=== PATIENT | female | born 1965 | race African-American/Black ===

== ENCOUNTER 2017-01-16 11:17 | Inpatient (IN) | payer MEDICAID ==
[~2017-01-16] VITALS: Ht 165.1 cm; Wt 92.1 kg
[~2017-01-16 11:17] MED LIST: ALBU8.5H5 INH; AMLO5TAB2 PO; ASPI-621 PO; CLON-364 PO; FLUT1DIS3 INH; FURO-92 PO; FURO-93 PO; HYDR-3144 PO; POTA20TA14 PO; WARF5TAB PO
[2017-01-16] MEDS ORDERED: ASPIRIN 81 MG TABLET CHEW ONE (11:57)
[2017-01-16] MEDS ORDERED: NITROGLYCERIN SINGLE TAB 0.4 MG SL ONE (11:57)
[2017-01-16 11:58] LABS: HEMATOCRIT 44.8 % (34.6-47.8); HEMOGLOBIN 14.5 g/dL (11.7-16.4); WHITE BLOOD COUNT 9.3 x10^3/uL (3.4-10)
[2017-01-16] MEDS ORDERED: SODIUM CHLORIDE FLUSH 10ML SYR IVF ONE (12:00)
[2017-01-16] MEDS ORDERED: ASPIRIN 81 MG TABLET CHEW PO ONE (12:00)
[2017-01-16 12:06] LABS: BLOOD UREA NITROGEN 16 mg/dL (7-18)
[2017-01-16] MEDS: NITROGLYCERIN SINGLE TAB 0.4 MG SL PRN ×3 (12:06→12:30)
[2017-01-16 12:12] LABS: ASPARTATE AMINO TRANSFERASE 68 U/L (15-37)
[2017-01-16] MEDS ORDERED: MAALOX/HYOSCYAMINE/LIDOCAINE 45 ML BTL ONE (12:35)
[2017-01-16] MEDS ORDERED: MAALOX/HYOSCYAMINE/LIDOCAINE 45 ML BTL PO ONE (13:00)
[2017-01-16] MEDS ORDERED: SODIUM CHLORIDE FLUSH 10ML SYR IVF PRN (14:30)
[2017-01-16] MEDS ORDERED: ONDANSETRON 2MG/ML, 2ML IVPush PRN (18:00)
[2017-01-16] MEDS: OXYcodone IR 5MG TABLET PO PRN ×2 (18:43→23:52)
[2017-01-16 19:21] LABS: IS PT STATUS REG ER OR PRE ER? NO
[2017-01-16 20:00] VITALS: BP 131/83
[2017-01-16 23:35] LABS: IS PT STATUS REG ER OR PRE ER? NO
[2017-01-17 02:25] VITALS: BP 132/74
[2017-01-17 05:16] LABS: HEMATOCRIT 42.3 % (34.6-47.8); HEMOGLOBIN 13.8 g/dL (11.7-16.4); WHITE BLOOD COUNT 9.6 x10^3/uL (3.4-10)
[2017-01-17 05:28] LABS: BLOOD UREA NITROGEN 23 mg/dL (7-18)
[2017-01-17 05:39] LABS: ASPARTATE AMINO TRANSFERASE 24 U/L (15-37)
[2017-01-17] MEDS: OXYcodone IR 5MG TABLET PO PRN ×2 (06:02→10:38)
[2017-01-17 07:18] VITALS: BP 142/82
[2017-01-17] MEDS ORDERED: REGADENOSON 0.4 MG/5 ML SYRINGE ONE (08:44)
[2017-01-17] MEDS ORDERED: ALLOPURINOL 300 MG TABLET PO SCH (09:00)
[2017-01-17] MEDS ORDERED: AMLODIPINE 5 MG TABLET PO SCH (09:00)
[2017-01-17 15:39] VITALS: BP 128/75
== END 2017-01-17 19:00 | disposition home or self-care (01) | DRG 392 ==
LOC: ED 12:35 → EDIP 14:18 → 5SO 15:42
PROVIDERS: ADMIT Internal Medicine; ATTEND Internal Medicine
DX: R10.11 Right upper quadrant pain (principal); I11.0 Hypertensive heart disease with heart failure; I50.9 Heart failure, unspecified; J44.9 Chronic obstructive pulmonary disease, unspecified; D75.1 Secondary polycythemia; R07.89 Other chest pain; I05.9 Rheumatic mitral valve disease, unspecified; G89.29 Other chronic pain; I20.9 Angina pectoris, unspecified; M10.9 Gout, unspecified; Z79.82 Long term (current) use of aspirin; Z83.3 Family history of diabetes mellitus; Z87.891 Personal history of nicotine dependence; Z95.2 Presence of prosthetic heart valve
CPT/HCPCS: 36415; 71010; 76700; 78452; 80053; 83690; 83880; 84443; 84484; 85025; 93005; 93017; 93306; J2785; A9502; C9898

== ENCOUNTER 2017-03-27 22:25 | Inpatient (IN) | payer MEDICAID ==
[~2017-03-27] VITALS: Ht 162.6 cm; Wt 97.2 kg
[~2017-03-27 22:25] MED LIST changes: -HYDR-3144 PO; +HYDR-3245 PO
[2017-03-27] MEDS ORDERED: PIPERACILLIN/TAZO/PMX 3.375GM 50 ML IVPB ONE (23:00)
[2017-03-27] MEDS ORDERED: SODIUM CHLORIDE 0.9% 1,000ML IVBOLUS ONE (23:00)
[2017-03-27] MEDS ORDERED: VANCOMYCIN PER PHARMACY IV ONE (23:00)
[2017-03-27] MEDS ORDERED: ACETAMINOPHEN 500 MG TABLET PO ONE (23:00)
[2017-03-27] MEDS ORDERED: IBUPROFEN 200 MG TABLET ONE (23:12)
[2017-03-27 23:28] LABS: HEMOGLOBIN 13.4 g/dL (11.7-16.4); WHITE BLOOD COUNT 15.7 x10^3/uL (3.4-10)
[2017-03-27] MEDS ORDERED: VANCOMYCIN 1,400 MG in SODIUM CHLORIDE 0.9% 250 ML IV ONE (23:30)
[2017-03-27 23:37] LABS: ASPARTATE AMINO TRANSFERASE 95 U/L (15-37); BLOOD UREA NITROGEN 16 mg/dL (7-18)
[2017-03-27 23:45] LABS: DIFF TOTAL CELLS COUNTED 100 CELL DIFF
[2017-03-27 23:48] LABS: VERIFY COUNTS? YES
[2017-03-27 23:49] LABS: ANISOCYTOSIS 1+; IS PT STATUS REG ER OR PRE ER? YES
[2017-03-27] MEDS ORDERED: ONDANSETRON 2MG/ML, 2ML ONE (23:51)
[2017-03-27 23:52] LABS: POLYCHROMASIA 1+; STOMATOCYTES 1+
[2017-03-27] MEDS ORDERED: PIPERACILLIN/TAZO/PMX 3.375GM 50 ML ONE (23:52)
[2017-03-28] MEDS ORDERED: IBUPROFEN 200 MG TABLET PO ONE
[2017-03-28] MEDS ORDERED: TIOT18CA INH (00:19)
[2017-03-28] MEDS ORDERED: FURO40TA6 PO (00:22)
[2017-03-28] MEDS ORDERED: ALLO100T30 PO (00:23)
[2017-03-28] MEDS ORDERED: ONDANSETRON 2MG/ML, 2ML IVPB PRN (02:30)
[2017-03-28] MEDS ORDERED: SODIUM CHLORIDE 0.9%, 500ML IVBOLUS PRN (02:30)
[2017-03-28] MEDS ORDERED: SODIUM CHLORIDE 0.9% 1,000ML IVBOLUS ONE ×2 (02:30→06:00)
[2017-03-28] MEDS ORDERED: PHARMACY MAY ADJ FOR RENAL FX MC PRN (02:30)
[2017-03-28] MEDS: PANTOPRAZOLE 40 MG IV IV SCH (03:37)
[2017-03-28 03:44] VITALS: BP 105/68
[2017-03-28 04:00] VITALS: BP 83/20
[2017-03-28] MEDS: MORPHINE SULFATE 4 MG/ML, 1ML IV PRN ×6 (04:01→23:20)
[2017-03-28] MEDS: SODIUM CHLORIDE 0.9%, 500ML IVBOLUS PRN ×3 (04:35→06:59)
[2017-03-28 05:03] LABS: HEMATOCRIT 40.1 % (34.6-47.8); HEMOGLOBIN 13.2 g/dL (11.7-16.4); WHITE BLOOD COUNT 11.7 x10^3/uL (3.4-10)
[2017-03-28 05:19] LABS: ASPARTATE AMINO TRANSFERASE 522 U/L (15-37); BLOOD UREA NITROGEN 20 mg/dL (7-18)
[2017-03-28 05:31] LABS: DIFF TOTAL CELLS COUNTED 100 CELL DIFF
[2017-03-28 05:34] LABS: ANISOCYTOSIS 1+; POLYCHROMASIA 1+; VERIFY COUNTS? YES
[2017-03-28] MEDS: NOREPINEPHRINE 4 MG in SODIUM CHLORIDE 0.9% 246 ML IV PRN ×2 (05:47→16:12)
[2017-03-28] MEDS: PIPERACILLIN/TAZO/PMX 4.5GM 50 ML IVPB SCH ×4 (05:48→22:58)
[2017-03-28 08:26] LABS: IS PT STATUS REG ER OR PRE ER? NO
[2017-03-28] MEDS ORDERED: MAGNESIUM SULFATE PMX 2GM/50ML 50 ML IV ONE (08:30)
[2017-03-28] MEDS ORDERED: MIDAZOLAM 1 MG/ML, 2ML ONE (08:36)
[2017-03-28] MEDS ORDERED: FENTANYL PF 100 MCG/2ML ONE ×3 (08:37)
[2017-03-28] MEDS ORDERED: ETOMIDATE 20 MG/10 ML ONE (08:37)
[2017-03-28] MEDS ORDERED: SUCCINYLCHOLINE 20 MG/ML, 10ML ONE (08:42)
[2017-03-28] MEDS ORDERED: ROCURONIUM 10MG/ML,5ML ONE ×2 (08:42→10:20)
[2017-03-28] MEDS ORDERED: EPINEPHRINE 1 MG/ML, 1ML ONE ×2 (08:58)
[2017-03-28] MEDS ORDERED: CEFOTETAN PMX 2GM/50ML 50 ML ONE (09:52)
[2017-03-28] MEDS ORDERED: BUPIVACAINE/PF 0.5% INFIL ONE (10:08)
[2017-03-28] MEDS ORDERED: BUPIVACAINE/PF 0.5% ONE (10:12)
[2017-03-28] MEDS ORDERED: THROMBIN 5,000 UNIT VIAL TP ONE (10:13)
[2017-03-28] MEDS: ALBUTEROL/IPRATROPIUM 2.5MG/0.5MG, 3 ML INLINE SCH ×4 (11:00→22:29)
[2017-03-28] MEDS ORDERED: SODIUM BICARB 8.4%, 50ML SYRINGE ONE (12:26)
[2017-03-28] MEDS ORDERED: LIDOCAINE-MPF 1%, 2ML ENDO PRN (12:30)
[2017-03-28] MEDS: SODIUM CHLORIDE 0.9% 1,000 ML IV SCH ×3 (12:38→22:58)
[2017-03-28] MEDS ORDERED: VANCOMYCIN PER PHARMACY MC PRN (15:00)
[2017-03-28] MEDS ORDERED: PHARMACOKINETIC MONITORING MC PRN (15:30)
[2017-03-28 16:01] LABS: IS PT STATUS REG ER OR PRE ER? NO
[2017-03-28] MEDS: PROPOFOL 100 ML IV PRN (16:13)
[2017-03-28] MEDS ORDERED: SODIUM BICARBONATE 1 MEQ/ML, 50ML VIAL IVPush ONE (18:30)
[2017-03-28] MEDS ORDERED: NOREPINEPHRINE 8 MG in SODIUM CHLORIDE 0.9% 242 ML IV PRN (20:30)
[2017-03-28] MEDS: NOREPINEPHRINE 8 MG in SODIUM CHLORIDE 0.9% 242 ML IV PRN (20:55)
[2017-03-28] MEDS ORDERED: ALBUTEROL/IPRATROPIUM 2.5MG/0.5MG, 3 ML ONE (21:17)
[2017-03-29] MEDS: PANTOPRAZOLE 40 MG IV IV SCH (01:26)
[2017-03-29] MEDS: MORPHINE SULFATE 4 MG/ML, 1ML IV PRN ×3 (01:36→22:37)
[2017-03-29] MEDS: ALBUTEROL/IPRATROPIUM 2.5MG/0.5MG, 3 ML INLINE SCH ×6 (02:54→22:51)
[2017-03-29 04:00] VITALS: BP 106/65
[2017-03-29 04:27] LABS: HEMATOCRIT 37.6 % (34.6-47.8); HEMOGLOBIN 12.3 g/dL (11.7-16.4); WHITE BLOOD COUNT 12.3 x10^3/uL (3.4-10)
[2017-03-29] MEDS: PROPOFOL 100 ML IV PRN ×5 (04:31→22:32)
[2017-03-29 04:32] LABS: ABG COLLECTION SITE NOT DOCUMENTED
[2017-03-29 04:39] LABS: ASPARTATE AMINO TRANSFERASE 373 U/L (15-37); BLOOD UREA NITROGEN 24 mg/dL (7-18)
[2017-03-29] MEDS: PIPERACILLIN/TAZO/PMX 4.5GM 50 ML IVPB SCH ×4 (05:32→23:59)
[2017-03-29] MEDS: SODIUM CHLORIDE 0.9% 1,000 ML IV SCH ×3 (05:33→21:17)
[2017-03-29] MEDS: NOREPINEPHRINE 8 MG in SODIUM CHLORIDE 0.9% 242 ML IV PRN ×2 (09:27→21:16)
[2017-03-29] MEDS: VANCOMYCIN 1,500 MG in SODIUM CHLORIDE 0.9% 250 ML IV SCH (13:08)
[2017-03-29 14:13] LABS: IS PT STATUS REG ER OR PRE ER? NO
[2017-03-29] MEDS ORDERED: VANCOMYCIN 2,000 MG in SODIUM CHLORIDE 0.9% 500 ML IV SCH (21:00)
[2017-03-30] MEDS: PANTOPRAZOLE 40 MG IV IV SCH (01:55)
[2017-03-30] MEDS: ALBUTEROL/IPRATROPIUM 2.5MG/0.5MG, 3 ML INLINE SCH ×6 (02:57→21:57)
[2017-03-30] MEDS: PROPOFOL 100 ML IV PRN ×5 (04:04→20:54)
[2017-03-30 04:08] LABS: ABG COLLECTION SITE ARTERIAL LINE
[2017-03-30 04:15] VITALS: BP 108/63
[2017-03-30 04:18] LABS: HEMATOCRIT 35.1 % (34.6-47.8); HEMOGLOBIN 11.5 g/dL (11.7-16.4)
[2017-03-30 04:29] LABS: BLOOD UREA NITROGEN 16 mg/dL (7-18)
[2017-03-30] MEDS: PIPERACILLIN/TAZO/PMX 4.5GM 50 ML IVPB SCH ×4 (05:45→23:55)
[2017-03-30] MEDS: SODIUM CHLORIDE 0.9% 1,000 ML IV SCH ×3 (06:27→19:33)
[2017-03-30] MEDS: ENOXAPARIN 40 MG/0.4 ML SQ SCH (11:11)
[2017-03-30] MEDS: NOREPINEPHRINE 8 MG in SODIUM CHLORIDE 0.9% 242 ML IV PRN (11:11)
[2017-03-30 15:17] LABS: IS PT STATUS REG ER OR PRE ER? NO
[2017-03-30 19:07] LABS: HIT LOT CART23835/KIT23844
[2017-03-30 20:11] LABS: HIT OBC PASS
[2017-03-30 20:12] LABS: HIT RESULT NEGATIVE (NEGATIVE)
[2017-03-30] MEDS ORDERED: SODIUM CHLORIDE 0.9% 1,000ML IVBOLUS ONE (23:30)
[2017-03-30] MEDS ORDERED: ACETAMINOPHEN 325 MG TABLET PO PRN (23:30)
[2017-03-31] MEDS: PROPOFOL 100 ML IV PRN ×7 (00:01→22:09)
[2017-03-31] MEDS: VANCOMYCIN 1,500 MG in SODIUM CHLORIDE 0.9% 250 ML IV SCH (01:18)
[2017-03-31] MEDS: ALBUTEROL/IPRATROPIUM 2.5MG/0.5MG, 3 ML INLINE SCH ×6 (02:20→21:38)
[2017-03-31] MEDS: PANTOPRAZOLE 40 MG IV IV SCH (02:35)
[2017-03-31] MEDS: SODIUM CHLORIDE 0.9% 1,000 ML IV SCH ×2 (02:46→09:21)
[2017-03-31 04:00] VITALS: BP 117/69
[2017-03-31 04:23] LABS: ABG COLLECTION SITE ARTERIAL LINE
[2017-03-31 04:28] LABS: HEMATOCRIT 34.1 % (34.6-47.8); HEMOGLOBIN 11.4 g/dL (11.7-16.4); WHITE BLOOD COUNT 10.2 x10^3/uL (3.4-10)
[2017-03-31 04:39] LABS: BLOOD UREA NITROGEN 13 mg/dL (7-18)
[2017-03-31 04:44] LABS: ASPARTATE AMINO TRANSFERASE 125 U/L (15-37)
[2017-03-31 04:47] LABS: DIFF TOTAL CELLS COUNTED 100 CELL DIFF
[2017-03-31 04:53] LABS: ANISOCYTOSIS 1+; POLYCHROMASIA 1+; VERIFY COUNTS? YES
[2017-03-31] MEDS: PIPERACILLIN/TAZO/PMX 4.5GM 50 ML IVPB SCH ×3 (06:22→17:45)
[2017-03-31] MEDS: ENOXAPARIN 40 MG/0.4 ML SQ SCH (09:22)
[2017-03-31] MEDS ORDERED: FUROSEMIDE 40 MG/4 ML ONE (10:31)
[2017-03-31] MEDS: FUROSEMIDE 40 MG/4 ML IV SCH (21:01)
[2017-03-31] MEDS ORDERED: morphine SULFATE 10 MG/ML, 1ML ONE (21:08)
[2017-03-31] MEDS: MORPHINE SULFATE 4 MG/ML, 1ML IV PRN (21:11)
[2017-03-31] MEDS ORDERED: SODIUM CHLORIDE 0.9% 1,000 ML IV SCH (21:30)
[2017-03-31] MEDS ORDERED: FENTANYL PF 2,500 MCG in SODIUM CHLORIDE 0.9% 200 ML IV PRN (22:00)
[2017-04-01] MEDS: PIPERACILLIN/TAZO/PMX 4.5GM 50 ML IVPB SCH ×4 (01:04→17:48)
[2017-04-01] MEDS: PROPOFOL 100 ML IV PRN (01:54)
[2017-04-01] MEDS: PANTOPRAZOLE 40 MG IV IV SCH (02:02)
[2017-04-01] MEDS: ALBUTEROL/IPRATROPIUM 2.5MG/0.5MG, 3 ML INLINE SCH ×2 (02:06→06:50)
[2017-04-01 04:16] VITALS: BP 119/69
[2017-04-01 04:40] LABS: ABG COLLECTION SITE RIGHT RADIAL; COLLATERAL CIRCULATION TESTING NORMAL
[2017-04-01 05:16] LABS: BLOOD UREA NITROGEN 9 mg/dL (7-18)
[2017-04-01 05:42] LABS: DIFF TOTAL CELLS COUNTED 100 CELL DIFF; HEMATOCRIT 33.8 % (34.6-47.8); HEMOGLOBIN 11.3 g/dL (11.7-16.4)
[2017-04-01 05:44] LABS: VERIFY COUNTS? YES
[2017-04-01 05:45] LABS: ANISOCYTOSIS 1+; POLYCHROMASIA 1+
[2017-04-01] MEDS ORDERED: MIDAZOLAM 1 MG/ML, 5ML IVPush PRN (08:00)
[2017-04-01] MEDS: FUROSEMIDE 40 MG/4 ML IV SCH ×2 (08:29→17:48)
[2017-04-01] MEDS: SODIUM CHLORIDE FLUSH 10ML SYR IVF SCH ×2 (08:29→20:59)
[2017-04-01] MEDS: ENOXAPARIN 40 MG/0.4 ML SQ SCH (08:29)
[2017-04-01] MEDS ORDERED: MAGNESIUM SULFATE PMX 4GM/100M 100 ML IV ONE ×2 (09:00→10:00)
[2017-04-01 09:29] LABS: HEP B SURF. AB 49.5 mIU/mL (0.0-10.0)
[2017-04-01] MEDS: POTASSIUM CHLORIDE 10% 40 MEQ/30 ML UDC NG SCH ×2 (09:40→21:09)
[2017-04-01] MEDS: ALBUTEROL/IPRATROPIUM 2.5MG/0.5MG, 3 ML NPPB SCH ×3 (11:00→18:58)
[2017-04-01] MEDS: POTASSIUM CHLORIDE 20 MEQ PACKET PO SCH (15:38)
[2017-04-01] MEDS ORDERED: POTASSIUM CHLORIDE 20 MEQ PACKET PO SCH (17:00)
[2017-04-01] MEDS: MORPHINE SULFATE 4 MG/ML, 1ML IV PRN (20:58)
[2017-04-01] MEDS ORDERED: morphine SULFATE 10 MG/ML, 1ML ONE (23:58)
[2017-04-02] MEDS: MORPHINE SULFATE 4 MG/ML, 1ML IV PRN ×2 (00:01→19:43)
[2017-04-02] MEDS: PIPERACILLIN/TAZO/PMX 4.5GM 50 ML IVPB SCH ×4 (00:01→18:08)
[2017-04-02] MEDS: PANTOPRAZOLE 40 MG IV IV SCH (02:50)
[2017-04-02 04:09] VITALS: BP 108/60
[2017-04-02 04:57] LABS: ABG COLLECTION SITE LEFT RADIAL; COLLATERAL CIRCULATION TESTING NORMAL
[2017-04-02 05:07] LABS: BLOOD UREA NITROGEN 8 mg/dL (7-18)
[2017-04-02 05:10] LABS: ASPARTATE AMINO TRANSFERASE 55 U/L (15-37)
[2017-04-02 05:48] LABS: DIFF TOTAL CELLS COUNTED 100 CELL DIFF; HEMATOCRIT 30.8 % (34.6-47.8); HEMOGLOBIN 10.2 g/dL (11.7-16.4); WHITE BLOOD COUNT 8.2 x10^3/uL (3.4-10)
[2017-04-02 05:51] LABS: VERIFY COUNTS? YES
[2017-04-02 05:52] LABS: ANISOCYTOSIS 1+; LARGE PLATELETS 1+; MICROCYTOSIS 1+
[2017-04-02] MEDS: ALBUTEROL/IPRATROPIUM 2.5MG/0.5MG, 3 ML NPPB SCH ×4 (07:29→19:16)
[2017-04-02] MEDS: FUROSEMIDE 40 MG/4 ML IV SCH ×2 (08:01→18:08)
[2017-04-02] MEDS: POTASSIUM CHLORIDE 20 MEQ PACKET PO SCH (08:01)
[2017-04-02] MEDS: SODIUM CHLORIDE FLUSH 10ML SYR IVF SCH ×2 (09:32→19:43)
[2017-04-02] MEDS: ENOXAPARIN 40 MG/0.4 ML SQ SCH (09:33)
[2017-04-02] MEDS ORDERED: LORazepam 2 MG/ML, 1ML IVPush PRN (16:00)
[2017-04-02] MEDS ORDERED: morphine SULFATE 10 MG/ML, 1ML ONE (19:39)
[2017-04-03] MEDS: PIPERACILLIN/TAZO/PMX 4.5GM 50 ML IVPB SCH ×4 (00:29→18:11)
[2017-04-03] MEDS: PANTOPRAZOLE 40 MG IV IV SCH (02:42)
[2017-04-03 04:49] VITALS: BP 112/65
[2017-04-03 05:34] LABS: ABG COLLECTION SITE RIGHT BRACHIAL
[2017-04-03 05:40] LABS: HEMATOCRIT 31.2 % (34.6-47.8); HEMOGLOBIN 10.2 g/dL (11.7-16.4); WHITE BLOOD COUNT 10.5 x10^3/uL (3.4-10)
[2017-04-03 05:48] LABS: ASPARTATE AMINO TRANSFERASE 43 U/L (15-37); BLOOD UREA NITROGEN 10 mg/dL (7-18)
[2017-04-03] MEDS: ALBUTEROL/IPRATROPIUM 2.5MG/0.5MG, 3 ML NPPB SCH ×4 (07:00→20:00)
[2017-04-03] MEDS: ENOXAPARIN 40 MG/0.4 ML SQ SCH (08:51)
[2017-04-03] MEDS: SODIUM CHLORIDE FLUSH 10ML SYR IVF SCH ×2 (08:51→20:37)
[2017-04-03] MEDS: FUROSEMIDE 40 MG/4 ML IV SCH (08:51)
[2017-04-03] MEDS ORDERED: MAGNESIUM SULFATE PMX 4GM/100M 100 ML IVPB ONE (10:00)
[2017-04-03] MEDS ORDERED: morphine SULFATE 10 MG/ML, 1ML ONE (10:07)
[2017-04-03] MEDS: POTASSIUM CHLORIDE 20 MEQ TAB.ER.PRT PO SCH ×2 (10:10→20:37)
[2017-04-03] MEDS: MORPHINE SULFATE 4 MG/ML, 1ML IV PRN ×2 (10:14→13:43)
[2017-04-03] MEDS: OXYcodone IR 5MG TABLET PO PRN (20:37)
[2017-04-04] MEDS: PIPERACILLIN/TAZO/PMX 4.5GM 50 ML IVPB SCH ×5 (00:01→23:06)
[2017-04-04] MEDS: PANTOPRAZOLE 40 MG IV IV SCH ×2 (00:17→23:06)
[2017-04-04 04:00] VITALS: BP 122/70
[2017-04-04 04:48] LABS: ABG COLLECTION SITE RIGHT RADIAL; COLLATERAL CIRCULATION TESTING NORMAL
[2017-04-04 04:53] LABS: HEMATOCRIT 29.6 % (34.6-47.8); HEMOGLOBIN 9.8 g/dL (11.7-16.4); WHITE BLOOD COUNT 10.8 x10^3/uL (3.4-10)
[2017-04-04 05:18] LABS: ASPARTATE AMINO TRANSFERASE 32 U/L (15-37); BLOOD UREA NITROGEN 11 mg/dL (7-18)
[2017-04-04] MEDS: OXYcodone IR 5MG TABLET PO PRN ×4 (05:45→20:25)
[2017-04-04] MEDS: ALBUTEROL/IPRATROPIUM 2.5MG/0.5MG, 3 ML NPPB SCH ×5 (07:00→23:12)
[2017-04-04] MEDS: ENOXAPARIN 40 MG/0.4 ML SQ SCH (10:12)
[2017-04-04] MEDS: POTASSIUM CHLORIDE 20 MEQ TAB.ER.PRT PO SCH ×2 (10:12→20:25)
[2017-04-04] MEDS: FUROSEMIDE 40 MG/4 ML IV SCH ×2 (10:12→17:34)
[2017-04-04] MEDS: SODIUM CHLORIDE FLUSH 10ML SYR IVF SCH ×2 (10:12→20:25)
[2017-04-04] MEDS: MORPHINE SULFATE 4 MG/ML, 1ML IV PRN (10:52)
[2017-04-04 17:07] LABS: SRA, LOW DOSE HEPARIN 3 % (0-20)
[2017-04-04] MEDS ORDERED: ALBUTEROL/IPRATROPIUM 2.5MG/0.5MG, 3 ML ONE (18:37)
[2017-04-05] MEDS: OXYcodone IR 5MG TABLET PO PRN ×3 (00:46→20:37)
[2017-04-05] MEDS: ALBUTEROL/IPRATROPIUM 2.5MG/0.5MG, 3 ML NPPB SCH ×6 (03:09→21:53)
[2017-04-05 04:00] VITALS: BP 114/67
[2017-04-05 04:41] LABS: ABG COLLECTION SITE LEFT RADIAL; COLLATERAL CIRCULATION TESTING NORMAL
[2017-04-05 04:42] LABS: HEMATOCRIT 29.5 % (34.6-47.8); HEMOGLOBIN 9.7 g/dL (11.7-16.4); WHITE BLOOD COUNT 11.3 x10^3/uL (3.4-10)
[2017-04-05 04:52] LABS: BLOOD UREA NITROGEN 11 mg/dL (7-18)
[2017-04-05] MEDS: PIPERACILLIN/TAZO/PMX 4.5GM 50 ML IVPB SCH ×4 (05:03→22:59)
[2017-04-05] MEDS ORDERED: MAGNESIUM SULFATE PMX 2GM/50ML 50 ML IV ONE (07:30)
[2017-04-05] MEDS: SODIUM CHLORIDE FLUSH 10ML SYR IVF SCH ×2 (09:00→20:37)
[2017-04-05] MEDS: POTASSIUM CHLORIDE 20 MEQ TAB.ER.PRT PO SCH ×2 (10:01→17:43)
[2017-04-05] MEDS: ENOXAPARIN 40 MG/0.4 ML SQ SCH (10:01)
[2017-04-06] MEDS: PANTOPRAZOLE 40 MG IV IV SCH (00:16)
[2017-04-06] MEDS: ALBUTEROL/IPRATROPIUM 2.5MG/0.5MG, 3 ML NPPB SCH ×3 (02:20→10:05)
[2017-04-06 04:00] VITALS: BP 109/56
[2017-04-06 04:23] LABS: ABG COLLECTION SITE LEFT RADIAL; COLLATERAL CIRCULATION TESTING NORMAL
[2017-04-06 04:26] LABS: HEMATOCRIT 28.3 % (34.6-47.8); HEMOGLOBIN 9.3 g/dL (11.7-16.4); WHITE BLOOD COUNT 11.7 x10^3/uL (3.4-10)
[2017-04-06 04:40] LABS: BLOOD UREA NITROGEN 10 mg/dL (7-18)
[2017-04-06] MEDS: PIPERACILLIN/TAZO/PMX 4.5GM 50 ML IVPB SCH ×2 (05:27→13:16)
[2017-04-06] MEDS: OXYcodone IR 5MG TABLET PO PRN (08:10)
[2017-04-06] MEDS ORDERED: ENOXAPARIN 40 MG/0.4 ML SQ SCH (10:00)
[2017-04-06] MEDS: SODIUM CHLORIDE FLUSH 10ML SYR IVF SCH (10:41)
== END 2017-04-06 14:09 | disposition left against medical advice (07) | DRG 853 ==
LOC: ED 03-28 00:27 → EDIP 03-28 02:07 → CCU 03-28 03:17
PROVIDERS: ADMIT Internal Medicine; ATTEND Internal Medicine
PROC: 0FT44ZZ Resection of Gallbladder, Percutaneous Endoscopic Approach (ICD-10-PCS; 2017-03-28)
PROC: 5A1945Z Respiratory Ventilation, 24-96 Consecutive Hours (ICD-10-PCS; 2017-03-28)
PROC: 0BH17EZ Insertion of Endotracheal Airway into Trachea, Via Natural or Artificial Opening (ICD-10-PCS; 2017-03-28)
PROC: 0T9B70Z Drainage of Bladder with Drainage Device, Via Natural or Artificial Opening (ICD-10-PCS; principal; 2017-03-28 09:00)
PROC: 5A09357 Assistance with Respiratory Ventilation, Less than 24 Consecutive Hours, Continuous Positive Airway Pressure (ICD-10-PCS; 2017-04-01)
PROC: 5A09357 Assistance with Respiratory Ventilation, Less than 24 Consecutive Hours, Continuous Positive Airway Pressure (ICD-10-PCS; 2017-04-02)
PROC: 5A09457 Assistance with Respiratory Ventilation, 24-96 Consecutive Hours, Continuous Positive Airway Pressure (ICD-10-PCS; 2017-04-03)
DX: A41.9 Sepsis, unspecified organism (principal); J96.00 Acute respiratory failure, unspecified whether with hypoxia or hypercapnia; N17.0 Acute kidney failure with tubular necrosis; R65.21 Severe sepsis with septic shock; K65.1 Peritoneal abscess; D69.6 Thrombocytopenia, unspecified; E66.01 Morbid (severe) obesity due to excess calories; K81.0 Acute cholecystitis; Z99.11 Dependence on respirator [ventilator] status; I50.9 Heart failure, unspecified; E83.42 Hypomagnesemia; I08.3 Combined rheumatic disorders of mitral, aortic and tricuspid valves; I11.0 Hypertensive heart disease with heart failure; E86.0 Dehydration; B95.61 Methicillin susceptible Staphylococcus aureus infection as the cause of diseases classified elsewhere; E11.9 Type 2 diabetes mellitus without complications; Z68.36 Body mass index [BMI] 36.0-36.9, adult; E87.6 Hypokalemia; F17.200 Nicotine dependence, unspecified, uncomplicated; G89.29 Other chronic pain; J44.9 Chronic obstructive pulmonary disease, unspecified; M10.9 Gout, unspecified; Z51.5 Encounter for palliative care; Z90.49 Acquired absence of other specified parts of digestive tract; Z95.3 Presence of xenogenic heart valve
CPT/HCPCS: 36415; 36600; 71010; 74176; 76700; 80048; 80053; 81001; 82542; 82803; 83605; 83735; 84100; 84145; 84478; 84484; 84703; 85025; 85610; 86022; 86706; 86803; 87040; 87070; 87075; 87077; 87081; 87086; 87147; 87186; 87205; 87340; 88304; 93005; 93306; 94002; 94003; 94150; 94640; 94660; C1729; J0171; J1650; J1940; J2250; J2405; J2543; J2704; J3010; J3370; J3490; J7620; C9113; J0330; J3475; J7030; J7040; J7050; S0074

== ENCOUNTER 2017-04-11 14:42 | Inpatient (IN) | payer MEDICAID ==
[~2017-04-11] VITALS: Ht 165.1 cm; Wt 90.9 kg
[~2017-04-11 14:42] MED LIST changes: +ALLO100T30 PO; +FURO40TA6 PO; +TIOT18CA INH
[2017-04-11] MEDS ORDERED: SODIUM CHLORIDE 0.9% 1,000ML IVBOLUS ONE (15:00)
[2017-04-11] MEDS ORDERED: ONDANSETRON 2MG/ML, 2ML IVPush ONE (15:00)
[2017-04-11] MEDS ORDERED: PLEASE ENTER HEIGHT AND WEIGHT MC SCH (15:00)
[2017-04-11] MEDS ORDERED: MORPHINE SULFATE 4 MG/ML, 1ML IVPush PRN (15:00)
[2017-04-11] MEDS ORDERED: ACETAMINOPHEN 325 MG SUPP ONE ×2 (15:04→15:06)
[2017-04-11] MEDS ORDERED: morphine SULFATE 10 MG/ML, 1ML ONE (15:04)
[2017-04-11] MEDS ORDERED: ONDANSETRON 2MG/ML, 2ML ONE (15:05)
[2017-04-11] MEDS: ACETAMINOPHEN 650 MG SUPP PR ONE ×2 (15:10→15:48)
[2017-04-11] MEDS ORDERED: PIPERACILLIN/TAZO/PMX 4.5GM 100 ML IVPB ONE (15:30)
[2017-04-11 15:50] LABS: ASPARTATE AMINO TRANSFERASE 39 U/L (15-37); BLOOD UREA NITROGEN 5 mg/dL (7-18)
[2017-04-11 15:52] LABS: HEMATOCRIT 38.6 % (34.6-47.8); HEMOGLOBIN 12.3 g/dL (11.7-16.4); WHITE BLOOD COUNT 13.1 x10^3/uL (3.4-10)
[2017-04-11] MEDS ORDERED: FUROSEMIDE 20 MG/2 ML IV SCH (16:30)
[2017-04-11] MEDS ORDERED: ACETAMINOPHEN 650 MG SUPP PR PRN (16:30)
[2017-04-11] MEDS ORDERED: OMNIPAQUE 350 MG/ML, 100ML BOTTLE ONE (16:48)
[2017-04-11 16:52] LABS: PATH.CAST-FLAG NOT PRESENT; SPERM-FLAG NOT PRESENT; SRC-FLAG NOT PRESENT; XTAL-FLAG NOT PRESENT; YLC-FLAG NOT PRESENT
[2017-04-11] MEDS ORDERED: FUROSEMIDE 20 MG/2 ML ONE (16:56)
[2017-04-11 17:05] LABS: ABG COLLECTION SITE RIGHT BRACHIAL
[2017-04-11] MEDS ORDERED: PIPERACILLIN/TAZO/PMX 4.5GM 100 ML IV SCH (18:30)
[2017-04-11] MEDS ORDERED: ALBUTEROL/IPRATROPIUM 2.5MG/0.5MG, 3 ML NPPB PRN (19:00)
[2017-04-11] MEDS ORDERED: ONDANSETRON 2MG/ML, 2ML IVPush PRN (19:00)
[2017-04-11] MEDS: morphine SULFATE 10 MG/ML, 1ML IVPush PRN (19:30)
[2017-04-11] MEDS ORDERED: ACETAMINOPHEN 325 MG TABLET PO PRN (19:30)
[2017-04-11] MEDS: FAMOTIDINE 20 MG/2 ML IVPush SCH (20:35)
[2017-04-11] MEDS: PIPERACILLIN/TAZO/PMX 4.5GM 100 ML IV SCH (20:35)
[2017-04-11 21:52] VITALS: BP 115/67
[2017-04-12] MEDS: morphine SULFATE 10 MG/ML, 1ML IVPush PRN ×5 (02:55→21:08)
[2017-04-12] MEDS ORDERED: VANCOMYCIN PMX 1GM/200ML 200 ML IV SCH (03:00)
[2017-04-12] MEDS: PIPERACILLIN/TAZO/PMX 4.5GM 100 ML IV SCH (04:06)
[2017-04-12 04:13] VITALS: BP 100/64
[2017-04-12 04:47] LABS: BLOOD UREA NITROGEN 9 mg/dL (7-18)
[2017-04-12 04:48] LABS: HEMATOCRIT 31.5 % (34.6-47.8); HEMOGLOBIN 10.3 g/dL (11.7-16.4); WHITE BLOOD COUNT 13.4 x10^3/uL (3.4-10)
[2017-04-12 04:53] LABS: ASPARTATE AMINO TRANSFERASE 33 U/L (15-37)
[2017-04-12] MEDS: ALBUTEROL/IPRATROPIUM 2.5MG/0.5MG, 3 ML NPPB SCH ×4 (06:13→19:25)
[2017-04-12] MEDS: FAMOTIDINE 20 MG/2 ML IVPush SCH ×2 (08:05→20:06)
[2017-04-12] MEDS ORDERED: CEFAZOLIN PMX 2GM/50ML 50 ML IVPB SCH (09:00)
[2017-04-12 12:00] VITALS: BP 98/56
[2017-04-12] MEDS: FUROSEMIDE 20 MG/2 ML IV SCH (16:27)
[2017-04-12] MEDS: CEFAZOLIN 2,000 MG in DEXTROSE 5% 50 ML IVPB SCH (17:28)
[2017-04-13] MEDS: CEFAZOLIN 2,000 MG in DEXTROSE 5% 50 ML IVPB SCH ×3 (01:29→17:33)
[2017-04-13] MEDS: morphine SULFATE 10 MG/ML, 1ML IVPush PRN ×2 (01:29→21:47)
[2017-04-13 04:48] LABS: HEMOGLOBIN 9.8 g/dL (11.7-16.4); WHITE BLOOD COUNT 11.5 x10^3/uL (3.4-10)
[2017-04-13 05:02] LABS: ASPARTATE AMINO TRANSFERASE 30 U/L (15-37); BLOOD UREA NITROGEN 12 mg/dL (7-18)
[2017-04-13 05:07] VITALS: BP 94/60
[2017-04-13] MEDS: ALBUTEROL/IPRATROPIUM 2.5MG/0.5MG, 3 ML NPPB SCH ×4 (07:00→20:07)
[2017-04-13] MEDS: FUROSEMIDE 20 MG/2 ML IV SCH ×2 (08:33→17:33)
[2017-04-13] MEDS: FAMOTIDINE 20 MG/2 ML IVPush SCH (08:33)
[2017-04-13] MEDS: FAMOTIDINE 20 MG TABLET PO SCH (20:18)
[2017-04-13] MEDS ORDERED: ACETAMINOPHEN 325 MG TABLET PO PRN (22:00)
[2017-04-13] MEDS ORDERED: ONDANSETRON 2MG/ML, 2ML IVPush PRN (22:00)
[2017-04-14] MEDS: CEFAZOLIN 2,000 MG in DEXTROSE 5% 50 ML IVPB SCH ×3 (01:53→18:02)
[2017-04-14 04:00] VITALS: BP 114/72
[2017-04-14] MEDS: ALBUTEROL/IPRATROPIUM 2.5MG/0.5MG, 3 ML NPPB SCH ×4 (06:55→20:40)
[2017-04-14] MEDS: FUROSEMIDE 20 MG/2 ML IV SCH ×2 (07:30→16:56)
[2017-04-14] MEDS: FAMOTIDINE 20 MG TABLET PO SCH ×2 (09:00→20:56)
[2017-04-14] MEDS: morphine SULFATE 10 MG/ML, 1ML IVPush PRN ×4 (11:36→20:41)
[2017-04-14 12:19] VITALS: BP 104/70
[2017-04-14] MEDS ORDERED: LIDOCAINE 1%, 20ML ONE (14:52)
[2017-04-14] MEDS ORDERED: FENTANYL PF 100 MCG/2ML ONE ×2 (15:21→15:22)
[2017-04-14] MEDS ORDERED: MIDAZOLAM 1 MG/ML, 5ML ONE (15:22)
[2017-04-14] MEDS ORDERED: FLUMAZENIL 0.1 MG/1 ML, 5ML ONE (15:22)
[2017-04-14] MEDS ORDERED: NALOXONE 1 MG/ML, 2ML ONE (15:22)
[2017-04-14] MEDS: POTASSIUM CHLORIDE 20 MEQ TAB.ER.PRT PO SCH (16:56)
[2017-04-14] MEDS: RIFAMPIN 300 MG CAPSULE PO SCH (16:57)
[2017-04-14 18:46] VITALS: BP 116/78
[2017-04-15] MEDS: morphine SULFATE 10 MG/ML, 1ML IVPush PRN ×3 (01:24→21:46)
[2017-04-15] MEDS: CEFAZOLIN 2,000 MG in DEXTROSE 5% 50 ML IVPB SCH ×3 (02:08→17:55)
[2017-04-15 02:12] VITALS: BP 129/81
[2017-04-15 05:26] LABS: HEMATOCRIT 29.6 % (34.6-47.8); HEMOGLOBIN 9.6 g/dL (11.7-16.4); WHITE BLOOD COUNT 9.9 x10^3/uL (3.4-10)
[2017-04-15 06:24] LABS: ASPARTATE AMINO TRANSFERASE 26 U/L (15-37); BLOOD UREA NITROGEN 9 mg/dL (7-18)
[2017-04-15] MEDS: ALBUTEROL/IPRATROPIUM 2.5MG/0.5MG, 3 ML NPPB SCH ×5 (06:50→20:00)
[2017-04-15 08:13] VITALS: BP 102/72
[2017-04-15] MEDS: FUROSEMIDE 20 MG/2 ML IV SCH ×2 (08:39→17:49)
[2017-04-15] MEDS: FAMOTIDINE 20 MG TABLET PO SCH ×2 (08:39→19:10)
[2017-04-15] MEDS: POTASSIUM CHLORIDE 20 MEQ TAB.ER.PRT PO SCH ×2 (08:39→17:49)
[2017-04-15] MEDS: RIFAMPIN 300 MG CAPSULE PO SCH (08:40)
[2017-04-15 13:36] VITALS: BP 106/71
[2017-04-15 19:35] VITALS: BP 123/72
[2017-04-16] MEDS: CEFAZOLIN 2,000 MG in DEXTROSE 5% 50 ML IVPB SCH ×3 (02:04→18:10)
[2017-04-16 02:21] VITALS: BP 122/81
[2017-04-16 05:31] LABS: BLOOD UREA NITROGEN 7 mg/dL (7-18)
[2017-04-16] MEDS: ALBUTEROL/IPRATROPIUM 2.5MG/0.5MG, 3 ML NPPB SCH ×3 (06:51→19:26)
[2017-04-16] MEDS: FUROSEMIDE 20 MG/2 ML IV SCH ×2 (08:46→17:44)
[2017-04-16] MEDS: FAMOTIDINE 20 MG TABLET PO SCH ×2 (08:47→19:35)
[2017-04-16] MEDS: POTASSIUM CHLORIDE 20 MEQ TAB.ER.PRT PO SCH ×2 (08:47→17:44)
[2017-04-16] MEDS: RIFAMPIN 300 MG CAPSULE PO SCH (08:47)
[2017-04-16 09:08] VITALS: BP 138/84
[2017-04-16] MEDS: morphine SULFATE 10 MG/ML, 1ML IVPush PRN ×3 (11:32→21:11)
[2017-04-16 13:58] VITALS: BP 108/74
[2017-04-16 20:26] VITALS: BP 122/81
[2017-04-17 01:57] VITALS: BP 126/81
[2017-04-17] MEDS: CEFAZOLIN 2,000 MG in DEXTROSE 5% 50 ML IVPB SCH ×3 (01:58→18:31)
[2017-04-17] MEDS: morphine SULFATE 10 MG/ML, 1ML IVPush PRN ×4 (03:11→20:58)
[2017-04-17] MEDS: ALBUTEROL/IPRATROPIUM 2.5MG/0.5MG, 3 ML NPPB SCH ×4 (07:15→20:00)
[2017-04-17 07:55] VITALS: BP 120/83
[2017-04-17] MEDS: POTASSIUM CHLORIDE 20 MEQ TAB.ER.PRT PO SCH ×2 (08:00→17:00)
[2017-04-17] MEDS ORDERED: POTASSIUM CHLORIDE 10 MEQ TABLET.ER ONE ×2 (09:21→17:11)
[2017-04-17] MEDS: FUROSEMIDE 20 MG/2 ML IV SCH ×2 (13:48→17:21)
[2017-04-17] MEDS: RIFAMPIN 300 MG CAPSULE PO SCH (13:48)
[2017-04-17] MEDS: FAMOTIDINE 20 MG TABLET PO SCH ×2 (13:48→21:29)
[2017-04-17 16:45] VITALS: BP 116/79
[2017-04-17 20:33] VITALS: BP 123/83
[2017-04-18] MEDS: morphine SULFATE 10 MG/ML, 1ML IVPush PRN ×5 (01:42→21:57)
[2017-04-18 01:48] VITALS: BP 109/73
[2017-04-18] MEDS: CEFAZOLIN 2,000 MG in DEXTROSE 5% 50 ML IVPB SCH ×3 (02:00→18:48)
[2017-04-18] MEDS: ALBUTEROL/IPRATROPIUM 2.5MG/0.5MG, 3 ML NPPB SCH ×4 (06:55→19:25)
[2017-04-18 07:59] VITALS: BP 132/82
[2017-04-18] MEDS: POTASSIUM CHLORIDE 20 MEQ TAB.ER.PRT PO SCH ×2 (09:07→18:05)
[2017-04-18] MEDS: FUROSEMIDE 20 MG/2 ML IV SCH ×2 (09:07→18:03)
[2017-04-18] MEDS: FAMOTIDINE 20 MG TABLET PO SCH ×2 (09:08→20:04)
[2017-04-18] MEDS: RIFAMPIN 300 MG CAPSULE PO SCH (09:08)
[2017-04-18 12:57] VITALS: BP 128/85
[2017-04-18 19:13] VITALS: BP 125/85
[2017-04-19] MEDS: CEFAZOLIN 2,000 MG in DEXTROSE 5% 50 ML IVPB SCH ×3 (01:52→18:00)
[2017-04-19 04:30] VITALS: BP 127/81
[2017-04-19] MEDS: ALBUTEROL/IPRATROPIUM 2.5MG/0.5MG, 3 ML NPPB SCH ×4 (07:00→16:03)
[2017-04-19 08:15] VITALS: BP 102/69
[2017-04-19] MEDS: POTASSIUM CHLORIDE 20 MEQ TAB.ER.PRT PO SCH ×2 (08:58→18:01)
[2017-04-19] MEDS: FAMOTIDINE 20 MG TABLET PO SCH ×2 (08:58→21:13)
[2017-04-19] MEDS: RIFAMPIN 300 MG CAPSULE PO SCH (08:58)
[2017-04-19] MEDS: FUROSEMIDE 20 MG/2 ML IV SCH ×2 (08:58→18:01)
[2017-04-19] MEDS: morphine SULFATE 10 MG/ML, 1ML IVPush PRN ×3 (10:53→22:00)
[2017-04-19 15:23] VITALS: BP 129/79
[2017-04-19 20:00] VITALS: BP 137/84
[2017-04-20] MEDS: CEFAZOLIN 2,000 MG in DEXTROSE 5% 50 ML IVPB SCH ×3 (01:51→18:11)
[2017-04-20] MEDS: morphine SULFATE 10 MG/ML, 1ML IVPush PRN ×4 (03:14→20:14)
[2017-04-20 03:17] VITALS: BP 128/85
[2017-04-20] MEDS: ALBUTEROL/IPRATROPIUM 2.5MG/0.5MG, 3 ML NPPB SCH ×4 (06:55→19:50)
[2017-04-20 07:51] VITALS: BP 120/85
[2017-04-20] MEDS: FAMOTIDINE 20 MG TABLET PO SCH ×2 (09:43→21:34)
[2017-04-20] MEDS: RIFAMPIN 300 MG CAPSULE PO SCH (09:43)
[2017-04-20] MEDS: POTASSIUM CHLORIDE 20 MEQ TAB.ER.PRT PO SCH ×2 (09:43→18:11)
[2017-04-20] MEDS: FUROSEMIDE 20 MG/2 ML IV SCH ×2 (09:43→18:11)
[2017-04-20 13:41] VITALS: BP 101/69
[2017-04-20] MEDS ORDERED: FLU VACC QS2017-18 (36MOS+) UP/PF 0.5 ML IM-VACC ONE (16:30)
[2017-04-20 19:34] VITALS: BP 105/73
[2017-04-20] MEDS ORDERED: ONDANSETRON 2MG/ML, 2ML IVPush PRN (21:30)
[2017-04-21 00:57] VITALS: BP 117/80
[2017-04-21] MEDS: CEFAZOLIN 2,000 MG in DEXTROSE 5% 50 ML IVPB SCH ×3 (02:37→18:03)
[2017-04-21 05:13] LABS: HEMATOCRIT 37.5 % (34.6-47.8); WHITE BLOOD COUNT 10.3 x10^3/uL (3.4-10)
[2017-04-21 05:41] LABS: ASPARTATE AMINO TRANSFERASE 16 U/L (15-37); BLOOD UREA NITROGEN 9 mg/dL (7-18)
[2017-04-21 07:58] VITALS: BP 114/76
[2017-04-21] MEDS: FUROSEMIDE 20 MG/2 ML IV SCH ×2 (08:49→17:27)
[2017-04-21] MEDS: POTASSIUM CHLORIDE 20 MEQ TAB.ER.PRT PO SCH (08:49)
[2017-04-21] MEDS: RIFAMPIN 300 MG CAPSULE PO SCH (08:50)
[2017-04-21] MEDS: FAMOTIDINE 20 MG TABLET PO SCH ×2 (08:50→20:53)
[2017-04-21] MEDS: morphine SULFATE 10 MG/ML, 1ML IVPush PRN ×3 (08:57→19:39)
[2017-04-21] MEDS: ALBUTEROL/IPRATROPIUM 2.5MG/0.5MG, 3 ML NPPB SCH ×2 (10:15→11:00)
[2017-04-21 13:10] VITALS: BP 115/84
[2017-04-21 19:48] VITALS: BP 109/74
[2017-04-22] MEDS: morphine SULFATE 10 MG/ML, 1ML IVPush PRN ×6 (00:34→22:53)
[2017-04-22 01:19] VITALS: BP 122/82
[2017-04-22] MEDS: CEFAZOLIN 2,000 MG in DEXTROSE 5% 50 ML IVPB SCH ×3 (02:07→19:47)
[2017-04-22 07:56] VITALS: BP 108/73
[2017-04-22] MEDS: FUROSEMIDE 20 MG/2 ML IV SCH ×2 (08:51→17:27)
[2017-04-22] MEDS: FAMOTIDINE 20 MG TABLET PO SCH ×2 (08:51→21:08)
[2017-04-22] MEDS: RIFAMPIN 300 MG CAPSULE PO SCH (08:52)
[2017-04-22] MEDS: KETOCONAZOLE CRM 2%, 15GM TP SCH ×2 (08:52→21:09)
[2017-04-22 13:33] VITALS: BP 118/81
[2017-04-22 19:18] VITALS: BP 105/73
[2017-04-23 02:02] VITALS: BP 99/68
[2017-04-23] MEDS: CEFAZOLIN 2,000 MG in DEXTROSE 5% 50 ML IVPB SCH (04:09)
[2017-04-23 08:00] VITALS: BP 118/80
[2017-04-23] MEDS: FUROSEMIDE 20 MG/2 ML IV SCH ×2 (08:23→16:52)
[2017-04-23] MEDS: KETOCONAZOLE CRM 2%, 15GM TP SCH ×2 (08:24→20:11)
[2017-04-23] MEDS: FAMOTIDINE 20 MG TABLET PO SCH ×2 (08:24→20:10)
[2017-04-23] MEDS: RIFAMPIN 300 MG CAPSULE PO SCH (08:24)
[2017-04-23] MEDS: morphine SULFATE 10 MG/ML, 1ML IVPush PRN ×3 (09:54→20:11)
[2017-04-23] MEDS: CEFAZOLIN PMX 2GM/50ML 50 ML IVPB SCH ×2 (12:10→20:10)
[2017-04-23 13:28] VITALS: BP 95/65
[2017-04-23 20:00] VITALS: BP 113/78
[2017-04-24 01:35] VITALS: BP 114/79
[2017-04-24] MEDS: CEFAZOLIN PMX 2GM/50ML 50 ML IVPB SCH ×2 (03:52→12:18)
[2017-04-24 07:46] VITALS: BP 108/74
[2017-04-24] MEDS: FUROSEMIDE 20 MG/2 ML IV SCH (08:59)
[2017-04-24] MEDS: FAMOTIDINE 20 MG TABLET PO SCH (08:59)
[2017-04-24] MEDS: morphine SULFATE 10 MG/ML, 1ML IVPush PRN ×2 (08:59→12:18)
[2017-04-24] MEDS: RIFAMPIN 300 MG CAPSULE PO SCH (08:59)
[2017-04-24] MEDS: KETOCONAZOLE CRM 2%, 15GM TP SCH (09:00)
[2017-04-24] MEDS ORDERED: RIFA300C3 PO (12:16)
[2017-04-24] MEDS ORDERED: CEFA2PIG IV (12:16)
[2017-04-24] MEDS ORDERED: KETO15CR2 TP (12:16)
[2017-04-24] MEDS ORDERED: TRAM50TA2 PO (12:16)
[2017-04-24 14:21] VITALS: BP 107/74
== END 2017-04-24 17:17 | disposition home or self-care (01) | DRG 871 ==
LOC: ED 15:35 → EDIP 16:13 → CCU 18:09 → 3NE 04-14 11:29
PROVIDERS: ADMIT Internal Medicine; ATTEND Internal Medicine
PROC: 0F9430Z Drainage of Gallbladder with Drainage Device, Percutaneous Approach (ICD-10-PCS; 2017-04-14)
PROC: 02HV33Z Insertion of Infusion Device into Superior Vena Cava, Percutaneous Approach (ICD-10-PCS; principal; 2017-04-21)
PROC: B5181ZA Fluoroscopy of Superior Vena Cava using Low Osmolar Contrast, Guidance (ICD-10-PCS; 2017-04-21)
PROC: B548ZZA Ultrasonography of Superior Vena Cava, Guidance (ICD-10-PCS; 2017-04-21)
DX: A41.01 Sepsis due to Methicillin susceptible Staphylococcus aureus (principal); K65.1 Peritoneal abscess; J96.00 Acute respiratory failure, unspecified whether with hypoxia or hypercapnia; N17.0 Acute kidney failure with tubular necrosis; I76 Septic arterial embolism; I74.8 Embolism and thrombosis of other arteries; K81.0 Acute cholecystitis; I50.33 Acute on chronic diastolic (congestive) heart failure; G92 Toxic encephalopathy; I31.3 Pericardial effusion (noninflammatory); I07.1 Rheumatic tricuspid insufficiency; B37.2 Candidiasis of skin and nail; D73.5 Infarction of spleen; D63.8 Anemia in other chronic diseases classified elsewhere; E66.9 Obesity, unspecified; Z68.33 Body mass index [BMI] 33.0-33.9, adult; F17.200 Nicotine dependence, unspecified, uncomplicated; F41.9 Anxiety disorder, unspecified; I11.0 Hypertensive heart disease with heart failure; I25.2 Old myocardial infarction; I27.20 Pulmonary hypertension, unspecified; J45.909 Unspecified asthma, uncomplicated; M10.9 Gout, unspecified; R65.20 Severe sepsis without septic shock; Z90.49 Acquired absence of other specified parts of digestive tract; Z91.19 Patient's noncompliance with other medical treatment and regimen; Z99.81 Dependence on supplemental oxygen; Z95.3 Presence of xenogenic heart valve
CPT/HCPCS: 36415; 36569; 36600; 49406; 71010; 71020; 74177; 75989; 76937; 77001; 80048; 80053; 81001; 82803; 83605; 83735; 83880; 85025; 85610; 85651; 86140; 86141; 87040; 87070; 87075; 87077; 87081; 87086; 87147; 87186; 87205; 93005; 93308; 93321; 93325; 94640; 96374; 96375; 99156; 99157; J0690; J2250; J2405; J2543; J3010; J3370; J3490; J7620; Q9967; C1751; J1940; J2270; J2310; J7030; S0028

== ENCOUNTER 2017-07-24 17:31 | Inpatient (IN) | payer MEDICAID ==
[~2017-07-24] VITALS: Ht 165.1 cm; Wt 82.3 kg
[~2017-07-24 17:31] MED LIST changes: +CEFA2PIG IV; +KETO15CR2 TP; +RIFA300C3 PO; +TRAM50TA2 PO
[2017-07-24] MEDS ORDERED: SODIUM CHLORIDE FLUSH 10ML SYR IVF ONE (18:00)
[2017-07-24] MEDS ORDERED: SODIUM CHLORIDE 0.9% 1,000ML IVBOLUS ONE (18:00)
[2017-07-24 18:23] LABS: BASOPHILS # (AUTO) 0.03 x10^3/uL (0-0.1); BASOPHILS % (AUTO) 1 % (0-1); EOSINOPHILS # (AUTO) 0.07 x10^3/uL (0-0.4); EOSINOPHILS % (AUTO) 1 % (1-7); LYMPHOCYTES # (AUTO) 1.51 x10^3/uL (1-3.4); LYMPHOCYTES % (AUTO) 21 % (22-44); MD NO; MEAN CORPUSCULAR HEMOGLOBIN 28.7 pg (27.0-34.8); MEAN CORPUSCULAR HGB CONC 32.7 g/dL (32.4-35.8); MEAN CORPUSCULAR VOLUME 87.7 fL (80-100); MEAN PLATELET VOLUME 8.2 fL (7.4-10.4); MONOCYTES # (AUTO) 0.43 x10^3/uL (0.2-0.8); MONOCYTES % (AUTO) 6 % (2-9); NEUTROPHILS # (AUTO) 5.21 x10^3/uL (1.8-6.8); NEUTROPHILS % (AUTO) 72 % (42-75); PLATELET COUNT 234 x10^3/uL (130-400); RED BLOOD COUNT 5.17 x10^6/uL (3.82-5.3); RED CELL DISTRIBUTION WIDTH 15.2 % (9.6-15.2)
[2017-07-24 18:32] LABS: ALBUMIN 3.6 g/dL (3.4-5.0); ANION GAP 8 mmol/L (5-15); CALCIUM 9.1 mg/dL (8.5-10.1); CHLORIDE 108 mmol/L (98-107)
[2017-07-24 18:36] LABS: ALANINE AMINOTRANSFERASE 66 U/L (12-78); ALKALINE PHOSPHATASE 120 U/L (45-117); BILIRUBIN,TOTAL 0.6 mg/dL (0.2-1.0); CREATININE 0.97 mg/dL (0.55-1.02); TOTAL PROTEIN 8.8 g/dL (6.4-8.2)
[2017-07-24 20:58] VITALS: BP 131/86
[2017-07-24] MEDS ORDERED: ONDANSETRON 2MG/ML, 2ML IVPush PRN (21:00)
[2017-07-24] MEDS ORDERED: ALBUTEROL SULFATE 2.5 MG/3 ML NPPB PRN (21:00)
[2017-07-24] MEDS ORDERED: DIPHENHYDRAMINE 25 MG CAPSULE PO PRN (21:00)
[2017-07-24] MEDS ORDERED: ENALAPRILAT 1.25 MG/ML, 2ML IV PRN (21:00)
[2017-07-24] MEDS ORDERED: POLYETHYLENE GLYCOL 17 GM PACKET PO PRN (21:00)
[2017-07-24] MEDS: FUROSEMIDE 40 MG TABLET PO SCH (21:28)
[2017-07-24] MEDS: ATORVASTATIN 40 MG TABLET PO SCH (21:28)
[2017-07-24] MEDS: HEPARIN 5,000 UNITS/ML, 1ML SQ SCH (21:29)
[2017-07-24] MEDS: NICOTINE 14MG/24 HR PATCH.TD24 TD SCH (21:29)
[2017-07-24] MEDS: ACETAMINOPHEN 650 MG/20.3 ML UDC PO PRN (21:29)
[2017-07-24] MEDS ORDERED: OMNIPAQUE 350 MG/ML, 100ML BOTTLE ONE (22:00)
[2017-07-24] MEDS: FLUTICASONE/VILANTEROL 100-25MCG/INH INH SCH (23:11)
[2017-07-25] VITALS (7 sets, daily range): BP systolic 119–165; BP diastolic 74–95
[2017-07-25] MEDS: HEPARIN 5,000 UNITS/ML, 1ML SQ SCH ×3 (05:08→20:17)
[2017-07-25 05:45] LABS: BASOPHILS # (AUTO) 0.04 x10^3/uL (0-0.1); BASOPHILS % (AUTO) 1 % (0-1); EOSINOPHILS % (AUTO) 2 % (1-7); LYMPHOCYTES # (AUTO) 2.42 x10^3/uL (1-3.4); LYMPHOCYTES % (AUTO) 36 % (22-44); MD NO; MEAN CORPUSCULAR HEMOGLOBIN 28.7 pg (27.0-34.8); MEAN CORPUSCULAR HGB CONC 32.8 g/dL (32.4-35.8); MEAN CORPUSCULAR VOLUME 87.4 fL (80-100); MEAN PLATELET VOLUME 8.7 fL (7.4-10.4); MONOCYTES # (AUTO) 0.37 x10^3/uL (0.2-0.8); MONOCYTES % (AUTO) 5 % (2-9); NEUTROPHILS # (AUTO) 3.88 x10^3/uL (1.8-6.8); NEUTROPHILS % (AUTO) 57 % (42-75); PLATELET COUNT 213 x10^3/uL (130-400); RED BLOOD COUNT 4.82 x10^6/uL (3.82-5.3)
[2017-07-25 05:49] LABS: ALBUMIN 3.3 g/dL (3.4-5.0); ANION GAP 9 mmol/L (5-15); CALCIUM 8.8 mg/dL (8.5-10.1); CHLORIDE 111 mmol/L (98-107)
[2017-07-25 05:52] LABS: ALANINE AMINOTRANSFERASE 52 U/L (12-78); ALKALINE PHOSPHATASE 98 U/L (45-117); BILIRUBIN,TOTAL 0.6 mg/dL (0.2-1.0); CHOL/HDL RATIO 4.1; CHOLESTEROL, TOTAL 202 mg/dL (140-239); CREATININE 0.88 mg/dL (0.55-1.02); HDL CHOL % 24 % (28-40); HDL CHOLESTEROL (DIRECT) 49 mg/dL (40-60); LDL CHOLESTEROL,CALCULATED 134 mg/dL (54-169); LDL/HDL RATIO 2.7 (0.5-3.0); TRIGLYCERIDES 93 mg/dL (50-200); VLDL CHOLESTEROL 19 mg/dL (0-25)
[2017-07-25] MEDS: IPRATROPIUM 0.5 MG/2.5 ML INHA NPPB SCH ×3 (10:11→21:00)
[2017-07-25] MEDS: FUROSEMIDE 40 MG TABLET PO SCH ×2 (10:17→20:17)
[2017-07-25] MEDS: FLUTICASONE/VILANTEROL 100-25MCG/INH INH SCH (10:17)
[2017-07-25] MEDS: ASPIRIN 81 MG TABLET CHEW PO/NG SCH (10:17)
[2017-07-25] MEDS: ACETAMINOPHEN 650 MG/20.3 ML UDC PO PRN ×2 (10:17→20:13)
[2017-07-25] MEDS: ALLOPURINOL 100 MG TABLET PO SCH (10:17)
[2017-07-25 15:54] LABS: MICROSCOPIC NOT IND
[2017-07-25 15:56] LABS: CULTURE INDICATED? NO
[2017-07-25] MEDS: ATORVASTATIN 40 MG TABLET PO SCH (20:17)
[2017-07-25] MEDS: SIMETHICONE 80 MG CHEW TAB PO PRN (21:00)
[2017-07-25] MEDS: DOCUSATE 100 MG CAPSULE PO PRN (21:00)
[2017-07-25] MEDS: NICOTINE 14MG/24 HR PATCH.TD24 TD SCH (21:00)
[2017-07-26 00:56] VITALS: BP 138/92
[2017-07-26] MEDS: IPRATROPIUM 0.5 MG/2.5 ML INHA NPPB SCH ×4 (03:00→21:00)
[2017-07-26] MEDS: HEPARIN 5,000 UNITS/ML, 1ML SQ SCH ×3 (05:34→21:38)
[2017-07-26 07:07] VITALS: BP 138/98
[2017-07-26] MEDS: FLUTICASONE/VILANTEROL 100-25MCG/INH INH SCH (08:31)
[2017-07-26] MEDS: ALLOPURINOL 100 MG TABLET PO SCH (08:31)
[2017-07-26] MEDS: ASPIRIN 81 MG TABLET CHEW PO/NG SCH (08:31)
[2017-07-26] MEDS: FUROSEMIDE 40 MG TABLET PO SCH ×2 (08:32→21:00)
[2017-07-26 12:41] VITALS: BP 120/85
[2017-07-26 18:59] VITALS: BP 115/80
[2017-07-26] MEDS: NICOTINE 14MG/24 HR PATCH.TD24 TD SCH (21:38)
[2017-07-26] MEDS: ATORVASTATIN 40 MG TABLET PO SCH (21:38)
[2017-07-26] MEDS: SIMETHICONE 80 MG CHEW TAB PO PRN (21:39)
[2017-07-26] MEDS: DOCUSATE 100 MG CAPSULE PO PRN (21:39)
[2017-07-26] MEDS: ACETAMINOPHEN 650 MG/20.3 ML UDC PO PRN (21:47)
[2017-07-27 03:00] VITALS: BP 120/80
[2017-07-27] MEDS: IPRATROPIUM 0.5 MG/2.5 ML INHA NPPB SCH ×4 (03:00→21:00)
[2017-07-27] MEDS: HEPARIN 5,000 UNITS/ML, 1ML SQ SCH ×3 (05:59→22:04)
[2017-07-27 07:49] VITALS: BP 135/85
[2017-07-27] MEDS: ALLOPURINOL 100 MG TABLET PO SCH (09:45)
[2017-07-27] MEDS: FUROSEMIDE 20 MG TABLET PO SCH ×2 (09:45→20:53)
[2017-07-27] MEDS: FLUTICASONE/VILANTEROL 100-25MCG/INH INH SCH (09:45)
[2017-07-27] MEDS: ASPIRIN 81 MG TABLET CHEW PO/NG SCH (09:45)
[2017-07-27 14:18] VITALS: BP 135/84
[2017-07-27 20:35] VITALS: BP 119/83
[2017-07-27] MEDS: ATORVASTATIN 40 MG TABLET PO SCH (20:53)
[2017-07-27] MEDS: NICOTINE 14MG/24 HR PATCH.TD24 TD SCH (20:53)
[2017-07-28 01:48] VITALS: BP 118/82
[2017-07-28] MEDS: IPRATROPIUM 0.5 MG/2.5 ML INHA NPPB SCH ×4 (02:14→21:20)
[2017-07-28] MEDS: HEPARIN 5,000 UNITS/ML, 1ML SQ SCH ×3 (05:48→20:46)
[2017-07-28 07:25] VITALS: BP 106/71
[2017-07-28] MEDS: ASPIRIN 81 MG TABLET CHEW PO/NG SCH (09:23)
[2017-07-28] MEDS: FUROSEMIDE 20 MG TABLET PO SCH (09:23)
[2017-07-28] MEDS: ALLOPURINOL 100 MG TABLET PO SCH (09:23)
[2017-07-28] MEDS: FLUTICASONE/VILANTEROL 100-25MCG/INH INH SCH (09:24)
[2017-07-28 13:10] VITALS: BP 122/83
[2017-07-28] MEDS ORDERED: NICO-486 TD (13:33)
[2017-07-28] MEDS ORDERED: ATOR40TA78 PO (13:33)
[2017-07-28] MEDS ORDERED: ASPI-515 PO/NG (13:33)
[2017-07-28 19:13] VITALS: BP 131/90
[2017-07-28] MEDS: NICOTINE 14MG/24 HR PATCH.TD24 TD SCH (20:45)
[2017-07-28] MEDS: ATORVASTATIN 40 MG TABLET PO SCH (20:46)
[2017-07-29] MEDS: IPRATROPIUM 0.5 MG/2.5 ML INHA NPPB SCH ×4 (01:09→20:45)
[2017-07-29 02:00] VITALS: BP 123/84
[2017-07-29] MEDS: HEPARIN 5,000 UNITS/ML, 1ML SQ SCH ×3 (05:03→21:06)
[2017-07-29 06:43] VITALS: BP 102/64
[2017-07-29] MEDS: FLUTICASONE/VILANTEROL 100-25MCG/INH INH SCH (09:51)
[2017-07-29] MEDS: ASPIRIN 81 MG TABLET CHEW PO/NG SCH (09:52)
[2017-07-29] MEDS: ALLOPURINOL 100 MG TABLET PO SCH (09:52)
[2017-07-29 14:15] VITALS: BP 107/74
[2017-07-29 19:25] VITALS: BP 112/76
[2017-07-29] MEDS: ATORVASTATIN 40 MG TABLET PO SCH (21:06)
[2017-07-29] MEDS: NICOTINE 14MG/24 HR PATCH.TD24 TD SCH (21:06)
[2017-07-30 01:18] VITALS: BP 116/78
[2017-07-30] MEDS: IPRATROPIUM 0.5 MG/2.5 ML INHA NPPB SCH ×2 (03:00→09:00)
[2017-07-30] MEDS: HEPARIN 5,000 UNITS/ML, 1ML SQ SCH ×2 (05:09→13:42)
[2017-07-30 07:17] VITALS: BP 118/72
[2017-07-30] MEDS: ASPIRIN 81 MG TABLET CHEW PO/NG SCH (09:14)
[2017-07-30] MEDS: FLUTICASONE/VILANTEROL 100-25MCG/INH INH SCH (09:14)
[2017-07-30] MEDS: ALLOPURINOL 100 MG TABLET PO SCH (09:14)
[2017-07-30 14:42] VITALS: BP 126/84
[2017-07-30] MEDS ORDERED: IPRATROPIUM 0.5 MG/2.5 ML INHA NPPB SCH (21:00)
== END 2017-07-30 17:06 | DRG 65 ==
LOC: ED 20:06 → EDIP 20:13 → 4WST 20:35
PROVIDERS: ADMIT Hospitalist; ATTEND Hospitalist
DX: I63.511 Cerebral infarction due to unspecified occlusion or stenosis of right middle cerebral artery (principal); I50.32 Chronic diastolic (congestive) heart failure; I31.9 Disease of pericardium, unspecified; K81.0 Acute cholecystitis; I11.0 Hypertensive heart disease with heart failure; F17.210 Nicotine dependence, cigarettes, uncomplicated; J44.9 Chronic obstructive pulmonary disease, unspecified; F41.9 Anxiety disorder, unspecified; M10.9 Gout, unspecified; Z83.3 Family history of diabetes mellitus; Z95.2 Presence of prosthetic heart valve; I25.2 Old myocardial infarction; Z90.49 Acquired absence of other specified parts of digestive tract
CPT/HCPCS: 36415; 70450; 70498; 70551; 74230; 80053; 80061; 81003; 85025; 93005; 93306; 94640; 99285; J1644; J7644; Q9967; 92523-GN

== ENCOUNTER 2018-08-06 09:02 | Inpatient (IN) | payer MEDICAID ==
[~2018-08-06] VITALS: Ht 165.1 cm; Wt 96.3 kg
[~2018-08-06 09:02] MED LIST changes: +AMLO-150 PO; -AMLO5TAB2 PO; +ASPI-515 PO/NG; -ASPI-621 PO; +ASPI81TA45 PO; +ATOR40TA78 PO; -CLON-364 PO; +CLON0.5T11 PO; +NICO-486 TD
--- NOTE | 2018-08-06 09:06 | NUR ---
NOT IN LOBBY USING RESTROOM
--- NOTE | 2018-08-06 10:29 | NUR ---
PT TO ED ROOM 23 FROM LOBBY IN NAD AT THIS TIME
--- NOTE | 2018-08-06 11:15 | NUR ---
MD PABON AT BEDSIDE TO DISCUSS RADS FINDINGS AND POC, PT STATES COMPREHENSION. PT IN BED, MONITORS APPLIED, NAD, NO NEEDS AT THIS TIME. WCTM
[2018-08-06 11:56] LABS: BASOPHILS # (AUTO) 0.04 x10^3/uL (0-0.1); BASOPHILS % (AUTO) 1 % (0-1); EOSINOPHILS # (AUTO) 0.25 x10^3/uL (0-0.4); EOSINOPHILS % (AUTO) 3 % (1-7); LYMPHOCYTES # (AUTO) 1.63 x10^3/uL (1-3.4); LYMPHOCYTES % (AUTO) 20 % (22-44); MD NO; MEAN CORPUSCULAR HEMOGLOBIN 29.5 pg (27.0-34.8); MEAN CORPUSCULAR HGB CONC 32.5 g/dL (32.4-35.8); MEAN CORPUSCULAR VOLUME 90.8 fL (80-100); MEAN PLATELET VOLUME 8.2 fL (7.4-10.4); MONOCYTES % (AUTO) 7 % (2-9); NEUTROPHILS # (AUTO) 5.81 x10^3/uL (1.8-6.8); NEUTROPHILS % (AUTO) 70 % (42-75); PLATELET COUNT 226 x10^3/uL (130-400); RED BLOOD COUNT 4.92 x10^6/uL (3.82-5.3); RED CELL DISTRIBUTION WIDTH 12.7 % (9.6-15.2)
--- NOTE | 2018-08-06 11:57 | NUR ---
REPORT FROM ORAL CORNELIUS, ASSUME CARE OF PT AT THIS TIME.
[2018-08-06 12:04] LABS: PROTHROMBIN TIME 10.5 Seconds (9.6-11.5)
[2018-08-06 12:05] LABS: ALBUMIN 3.9 g/dL (3.4-5.0); ANION GAP 5 mmol/L (5-15); CALCIUM 9.2 mg/dL (8.5-10.1); CHLORIDE 109 mmol/L (98-107)
[2018-08-06] MEDS ORDERED: ALBUTEROL SULFATE 2.5 MG/3 ML NPPB PRN (12:30)
[2018-08-06] MEDS ORDERED: SODIUM CHLORIDE FLUSH 10ML SYR IVF PRN (12:30)
[2018-08-06] MEDS ORDERED: INSTRUCTION SEE COMMENTS XX ONE (12:30)
[2018-08-06] MEDS ORDERED: LABETALOL 5 MG/ML SYRINGE IV PRN (12:30)
[2018-08-06] MEDS ORDERED: GABA600T7 PO (13:20)
[2018-08-06] MEDS ORDERED: FURO20TA3 PO (13:20)
[2018-08-06] MEDS ORDERED: CLON0.5T PO (13:21)
[2018-08-06] MEDS ORDERED: ZOLP-413 PO (13:22)
[2018-08-06] MEDS ORDERED: MORPHINE SULFATE 4 MG/ML, 1ML ONE ×2 (13:28→21:37)
[2018-08-06] MEDS: morphine SULFATE 10 MG/ML, 1ML IVPush PRN ×2 (13:30→21:47)
--- NOTE | 2018-08-06 13:33 | NUR ---
PT C/O 12/16 MORGAN PAIN, MEDICATED PER ERP ORDER. VS UPDATED IN COMPUTER, PT WITH PULSE OX READING 88%, OXYGEN PLACED AT 2LITERS VIA NC. MED REC COMPLETED, AWAITING ADMIT BED.
[2018-08-06] MEDS ORDERED: NS + 20MEQ KCL 1,000 ML IV ONE (14:03)
[2018-08-06] MEDS: POTASSIUM CHLORIDE 20 MEQ in SODIUM CHLORIDE 0.9% 1,000 ML IV SCH (14:09)
[2018-08-06] MEDS ORDERED: NICOTINE 14MG/24 HR PATCH.TD24 ONE (14:11)
[2018-08-06] MEDS: NICOTINE 14MG/24 HR PATCH.TD24 TD SCH (14:14)
--- NOTE | 2018-08-06 14:22 | NUR ---
REPORT TO NEERAJ CORNELIUS. PT READY FOR TRANSPORT TO CCU.
[2018-08-06 14:39] VITALS: BP 139/87
[2018-08-06] MEDS: ALBUTEROL SULFATE 2.5 MG/3 ML NPPB SCH ×2 (15:00→21:56)
[2018-08-06] MEDS: OXYcodone IR 5MG TABLET PO PRN (17:13)
[2018-08-06] MEDS: ATORVASTATIN 40 MG TABLET PO SCH (19:51)
[2018-08-06] MEDS ORDERED: TEMPLATE NON-FORMULARY MED. (Fluticasone/Salmeterol** (Advair 250-50 Diskus**) 1 PUFF) INH SCH (21:00)
[2018-08-06] MEDS: BUDESONIDE 0.5 MG/2 ML INHA NPPB SCH (21:56)
[2018-08-07] MEDS: POTASSIUM CHLORIDE 20 MEQ in SODIUM CHLORIDE 0.9% 1,000 ML IV SCH (00:45)
[2018-08-07] MEDS: morphine SULFATE 10 MG/ML, 1ML IVPush PRN (00:45)
[2018-08-07] MEDS: ALBUTEROL SULFATE 2.5 MG/3 ML NPPB SCH ×2 (03:00→06:45)
[2018-08-07 04:00] VITALS: BP 120/69
[2018-08-07] MEDS: OXYcodone IR 5MG TABLET PO PRN ×2 (04:02→08:20)
[2018-08-07 05:16] LABS: CHOL/HDL RATIO 5.4; LDL/HDL RATIO 3.4 (0.5-3.0)
[2018-08-07] MEDS: BUDESONIDE 0.5 MG/2 ML INHA NPPB SCH ×2 (06:45→20:25)
[2018-08-07] MEDS ORDERED: ALBUTEROL/IPRATROPIUM 2.5MG/0.5MG, 3 ML NPPB SCH (07:00)
[2018-08-07] MEDS: AMLODIPINE 5 MG TABLET PO SCH (07:39)
[2018-08-07] MEDS: ALLOPURINOL 100 MG TABLET PO SCH (07:39)
[2018-08-07] MEDS ORDERED: IPRATROPIUM 0.5 MG/2.5 ML INHA NPPB SCH (09:00)
[2018-08-07] MEDS ORDERED: FUROSEMIDE 20 MG TABLET PO SCH (11:00)
[2018-08-07] MEDS: NICOTINE 14MG/24 HR PATCH.TD24 TD SCH ×2 (12:30→20:03)
[2018-08-07] MEDS ORDERED: FUROSEMIDE 40 MG/4 ML IV ONE (13:00)
[2018-08-07 15:17] LABS: BASOPHILS # (AUTO) 0.03 x10^3/uL (0-0.1); BASOPHILS % (AUTO) 0 % (0-1); EOSINOPHILS # (AUTO) 0.21 x10^3/uL (0-0.4); EOSINOPHILS % (AUTO) 3 % (1-7); LYMPHOCYTES # (AUTO) 1.68 x10^3/uL (1-3.4); LYMPHOCYTES % (AUTO) 22 % (22-44); MD NO; MEAN CORPUSCULAR HEMOGLOBIN 30.4 pg (27.0-34.8); MEAN CORPUSCULAR HGB CONC 33.6 g/dL (32.4-35.8); MEAN CORPUSCULAR VOLUME 90.7 fL (80-100); MEAN PLATELET VOLUME 8.3 fL (7.4-10.4); MONOCYTES % (AUTO) 8 % (2-9); NEUTROPHILS % (AUTO) 67 % (42-75); PLATELET COUNT 191 x10^3/uL (130-400); RED BLOOD COUNT 4.49 x10^6/uL (3.82-5.3); RED CELL DISTRIBUTION WIDTH 12.8 % (9.6-15.2)
[2018-08-07 15:25] LABS: ANION GAP 4 mmol/L (5-15); CHLORIDE 109 mmol/L (98-107); CREATININE 1.02 mg/dL (0.55-1.02)
[2018-08-07] MEDS ORDERED: OMNIPAQUE 350 MG/ML, 100ML BOTTLE ONE (18:00)
[2018-08-07] MEDS: FUROSEMIDE 40 MG/4 ML IV SCH (19:24)
[2018-08-07] MEDS: ATORVASTATIN 40 MG TABLET PO SCH (19:25)
[2018-08-07] MEDS: ALBUTEROL/IPRATROPIUM 2.5MG/0.5MG, 3 ML NPPB SCH (20:25)
[2018-08-07] MEDS: ACETAMINOPHEN 325 MG TABLET PO PRN (21:51)
[2018-08-08] MEDS: ACETAMINOPHEN 325 MG TABLET PO PRN ×2 (03:42→14:57)
[2018-08-08 04:38] VITALS: BP 123/69
[2018-08-08 06:32] LABS: ANION GAP 4 mmol/L (5-15); CALCIUM 9.2 mg/dL (8.5-10.1); CHLORIDE 107 mmol/L (98-107); CREATININE 0.87 mg/dL (0.55-1.02)
[2018-08-08] MEDS: AMLODIPINE 5 MG TABLET PO SCH (08:49)
[2018-08-08] MEDS: ALLOPURINOL 100 MG TABLET PO SCH (08:50)
[2018-08-08] MEDS: FUROSEMIDE 40 MG/4 ML IV SCH (08:50)
[2018-08-08] MEDS: ALBUTEROL/IPRATROPIUM 2.5MG/0.5MG, 3 ML NPPB SCH ×2 (09:00→20:59)
[2018-08-08] MEDS: BUDESONIDE 0.5 MG/2 ML INHA NPPB SCH ×2 (09:00→20:59)
[2018-08-08 14:54] VITALS: BP 128/84
[2018-08-08] MEDS ORDERED: FUROSEMIDE 40 MG/4 ML IV SCH (16:00)
[2018-08-08] MEDS ORDERED: GUAIFENESIN/DM 100-10MG, 5ML UDC ONE (18:34)
[2018-08-08] MEDS ORDERED: BENZONATATE 100 MG CAPSULE ONE (18:35)
[2018-08-08] MEDS: BENZONATATE 100 MG CAPSULE PO PRN (19:03)
[2018-08-08] MEDS: GUAIFENESIN/COD200MG-20MG/10ML LIQUID PO PRN (19:04)
[2018-08-08] MEDS: ATORVASTATIN 40 MG TABLET PO SCH (19:38)
[2018-08-08 20:51] VITALS: BP 118/86
[2018-08-09 00:14] VITALS: BP 124/76
[2018-08-09 05:18] LABS: ANION GAP 5 mmol/L (5-15); CALCIUM 9.3 mg/dL (8.5-10.1); CHLORIDE 108 mmol/L (98-107); CREATININE 1.03 mg/dL (0.55-1.02)
[2018-08-09 07:10] VITALS: BP 119/85
[2018-08-09] MEDS: ALBUTEROL/IPRATROPIUM 2.5MG/0.5MG, 3 ML NPPB SCH (09:00)
[2018-08-09] MEDS: BUDESONIDE 0.5 MG/2 ML INHA NPPB SCH (09:00)
[2018-08-09] MEDS: GUAIFENESIN/COD200MG-20MG/10ML LIQUID PO PRN (09:06)
[2018-08-09] MEDS: ALLOPURINOL 100 MG TABLET PO SCH (09:07)
[2018-08-09] MEDS: BENZONATATE 100 MG CAPSULE PO PRN (09:07)
[2018-08-09] MEDS: ACETAMINOPHEN 325 MG TABLET PO PRN (09:07)
[2018-08-09] MEDS: AMLODIPINE 5 MG TABLET PO SCH (09:07)
[2018-08-09] MEDS: NICOTINE 14MG/24 HR PATCH.TD24 TD SCH (12:30)
== END 2018-08-09 13:55 | disposition home or self-care (01) | DRG 85 ==
LOC: ED 10:48 → EDIP 12:28 → CCU 14:34 → 5SO 08-08 14:04
PROVIDERS: ADMIT Hospitalist; ATTEND Hospitalist
DX: S06.5X0A Traumatic subdural hemorrhage without loss of consciousness, initial encounter (principal); J96.01 Acute respiratory failure with hypoxia; I50.33 Acute on chronic diastolic (congestive) heart failure; F13.20 Sedative, hypnotic or anxiolytic dependence, uncomplicated; W00.0XXA Fall on same level due to ice and snow, initial encounter; Y93.01 Activity, walking, marching and hiking; I11.0 Hypertensive heart disease with heart failure; J44.9 Chronic obstructive pulmonary disease, unspecified; F41.9 Anxiety disorder, unspecified; G89.29 Other chronic pain; D32.9 Benign neoplasm of meninges, unspecified; E78.5 Hyperlipidemia, unspecified; F17.210 Nicotine dependence, cigarettes, uncomplicated; I07.1 Rheumatic tricuspid insufficiency; I37.1 Nonrheumatic pulmonary valve insufficiency; S16.1XXA Strain of muscle, fascia and tendon at neck level, initial encounter; M10.9 Gout, unspecified; Z79.82 Long term (current) use of aspirin; Z95.3 Presence of xenogenic heart valve; Z86.73 Personal history of transient ischemic attack (TIA), and cerebral infarction without residual deficits; Z79.899 Other long term (current) drug therapy; I25.2 Old myocardial infarction; Z82.49 Family history of ischemic heart disease and other diseases of the circulatory system; Y92.89 Other specified places as the place of occurrence of the external cause; Y99.8 Other external cause status; Z83.3 Family history of diabetes mellitus; Z86.19 Personal history of other infectious and parasitic diseases; Z90.49 Acquired absence of other specified parts of digestive tract; Z98.891 History of uterine scar from previous surgery; Z88.8 Allergy status to other drugs, medicaments and biological substances
CPT/HCPCS: 36415; 99285; J7613; J7620; J7626; J7644; 70450; 71045; 71275; 72125; 80048; 80061; 82040; 83735; 85025; 85379; 85610; 85730; 87081; 93306; 93970; 94640; 96374; G0378; J1940; J3480; Q9967; J2270; J7030

== ENCOUNTER 2020-12-04 21:09 | Inpatient (IN) | payer MEDICAID ==
[~2020-12-04] VITALS: Ht 165.1 cm; Wt 116.8 kg
[~2020-12-04 21:09] MED LIST changes: +ALLO300T PO; +AMLO-211 PO; +ASPI-496 PO; -ASPI-515 PO/NG; +ASPI-963 PO/NG; +BUSP10TA PO; +CLON-364 PO; +CLON0.5T PO; -CLON0.5T11 PO; +FLUO20CA19 PO; +FLUT1AER INH; +FURO20TA3 PO; +GABA600T7 PO; -HYDR-3245 PO; +HYDR1TAB53 PO; +KETO15CR17 TP; -KETO15CR2 TP; +MELO15TA24 PO; +POTA10TA31 PO; -WARF5TAB PO; +WARF5TAB2 PO; +ZOLP-413 PO
--- NOTE | 2020-12-04 21:35 | NUR ---
STUDENT AT BEDSIDE FOR EVAL.
[2020-12-04 21:55] LABS: MEAN CORPUSCULAR HEMOGLOBIN 30.4 pg (27.0-34.8); MEAN CORPUSCULAR HGB CONC 33.2 g/dL (32.4-35.8); MEAN PLATELET VOLUME 8.1 fL (7.4-10.4); PLATELET COUNT 219 x10^3/uL (130-400); RED BLOOD COUNT 5.18 x10^6/uL (3.82-5.3); RED CELL DISTRIBUTION WIDTH 14.8 % (9.6-15.2)
[2020-12-04 22:03] LABS: ALANINE AMINOTRANSFERASE 22 U/L (12-78); ALBUMIN 3.7 g/dL (3.4-5.0); ANION GAP 9 mmol/L (5-15); CALCIUM 8.9 mg/dL (8.5-10.1); CHLORIDE 102 mmol/L (98-107); CREATININE 1.07 mg/dL (0.55-1.02)
[2020-12-04 22:08] LABS: ALKALINE PHOSPHATASE 101 U/L (45-117); BILIRUBIN,TOTAL 0.9 mg/dL (0.2-1.0); TOTAL PROTEIN 8.4 g/dL (6.4-8.2); TROPONIN I < 0.015 ng/mL (0.000-0.045)
[2020-12-04 22:30] LABS: ANISOCYTOSIS 1+; BASOS#(MANUAL) 0.19 x10^3/uL (0-0.1); BASOS% (MANUAL) 2 % (0-1); LYMPH#(MANUAL) 2.73 x10^3/uL (1-3.4); LYMPHS% (MANUAL) 29 % (22-44); MONOS#(MANUAL) 0.66 x10^3/uL (0.3-2.7); MONOS% (MANUAL) 7 % (2-9); POLYCHROMASIA 1+; SEG#(MANUAL) 5.83 x10^3/uL (1.8-6.8); SEGS% (MANUAL) 62 % (42-75)
[2020-12-04] MEDS ORDERED: FUROSEMIDE 40 MG/4 ML IV ONE (22:30)
[2020-12-04 22:31] LABS: <PLATELET ESTIMATE> ADEQUATE; <PLT MORPHOLOGY> NORMAL PLT MORPH
[2020-12-04] MEDS ORDERED: FUROSEMIDE 40 MG/4 ML ONE (22:44)
[2020-12-04] MEDS ORDERED: POTASSIUM CHLORIDE 20 MEQ TAB.ER.PRT PO ONE (23:00)
--- NOTE | 2020-12-04 23:18 | NUR ---
report to Sarahy CORNELIUS.
--- NOTE | 2020-12-05 00:07 | NUR ---
1ST CONTACT C PT. RESTING ON CART. AMBULATORY TO RESTROOM C STEADY GAIT. AWARE OF PLAN TO ADMIT, AT BS. WILL CTM.
[2020-12-05] MEDS ORDERED: POTASSIUM CHLORIDE 20 MEQ TAB.ER.PRT ONE (00:20)
[2020-12-05] MEDS ORDERED: GUAIFENESIN/DM 200-20MG, 10ML UDC PO PRN (02:00)
[2020-12-05] MEDS ORDERED: ZOLPIDEM 5MG TABLET PO PRN (02:00)
[2020-12-05] MEDS ORDERED: hydrALAzine 20 MG/ML, 1ML IVPush PRN (02:00)
[2020-12-05] MEDS ORDERED: ONDANSETRON 2MG/ML, 2ML IVPush PRN (02:00)
[2020-12-05] MEDS ORDERED: ACETAMINOPHEN 325 MG TABLET PO PRN (02:00)
[2020-12-05] MEDS ORDERED: METHOCARBAMOL 500 MG TABLET PO PRN (02:00)
[2020-12-05] MEDS ORDERED: morphine SULFATE 10 MG/ML, 1ML IVPush PRN (02:00)
[2020-12-05] MEDS: ENOXAPARIN 40 MG/0.4 ML SQ SCH (02:20)
[2020-12-05] MEDS: HYDROcodone/APAP 5/325 TABLET PO PRN ×4 (02:21→20:48)
[2020-12-05 02:27] VITALS: BP 117/80
[2020-12-05 04:02] VITALS: BP 124/81
[2020-12-05] MEDS: GABAPENTIN 300 MG CAPSULE PO SCH ×4 (05:48→20:47)
[2020-12-05 06:02] LABS: MICROSCOPIC NOT IND
[2020-12-05 07:07] VITALS: BP 105/71
[2020-12-05] MEDS: FUROSEMIDE 40 MG/4 ML IV SCH ×2 (07:42→16:32)
[2020-12-05] MEDS: ASPIRIN 81 MG TABLET EC PO SCH (07:43)
[2020-12-05] MEDS: AMLODIPINE 10 MG TAB PO SCH (07:43)
[2020-12-05] MEDS: ALLOPURINOL 300 MG TABLET PO SCH (07:43)
[2020-12-05] MEDS: POTASSIUM CHLORIDE 10 MEQ TABLET.ER PO SCH (07:50)
[2020-12-05] MEDS: POTASSIUM CHLORIDE 20 MEQ TAB.ER.PRT PO SCH (07:50)
[2020-12-05 13:47] VITALS: BP 115/78
[2020-12-05 18:54] VITALS: BP 102/62
[2020-12-05] MEDS: ZOLPIDEM 5MG TABLET PO SCH (20:48)
[2020-12-05] MEDS ORDERED: DIPHENHYDRAMINE 25 MG CAPSULE ONE (21:50)
[2020-12-05] MEDS ORDERED: DIPHENHYDRAMINE 25 MG CAPSULE PO ONE (22:00)
[2020-12-06 01:41] VITALS: BP 108/74
[2020-12-06] MEDS: ENOXAPARIN 40 MG/0.4 ML SQ SCH (02:15)
[2020-12-06] MEDS: GABAPENTIN 300 MG CAPSULE PO SCH ×4 (05:17→20:00)
[2020-12-06 06:06] LABS: ANION GAP 7 mmol/L (5-15); CALCIUM 9.2 mg/dL (8.5-10.1); CHLORIDE 107 mmol/L (98-107); CREATININE 1.08 mg/dL (0.55-1.02)
[2020-12-06 06:17] LABS: BASOPHILS % (AUTO) 1 % (0-1); EOSINOPHILS % (AUTO) 3 % (1-7); LYMPHOCYTES % (AUTO) 24 % (22-44); MEAN CORPUSCULAR HEMOGLOBIN 30.6 pg (27.0-34.8); MEAN CORPUSCULAR HGB CONC 32.8 g/dL (32.4-35.8); MEAN PLATELET VOLUME 8.5 fL (7.4-10.4); MONOCYTES % (AUTO) 8 % (2-9); NEUTROPHILS % (AUTO) 65 % (42-75); PLATELET COUNT 222 x10^3/uL (130-400); RED BLOOD COUNT 5.34 x10^6/uL (3.82-5.3)
[2020-12-06] MEDS: HYDROcodone/APAP 5/325 TABLET PO PRN ×3 (06:39→17:23)
[2020-12-06 07:07] VITALS: BP 104/66
[2020-12-06] MEDS: INSULIN LISPRO 100 UNITS/ML, PEN SQ-INSULIN SCH ×4 (07:30→20:01)
[2020-12-06] MEDS: FUROSEMIDE 40 MG/4 ML IV SCH ×2 (09:29→17:11)
[2020-12-06] MEDS: POTASSIUM CHLORIDE 20 MEQ TAB.ER.PRT PO SCH (09:29)
[2020-12-06] MEDS: ASPIRIN 81 MG TABLET EC PO SCH (09:29)
[2020-12-06] MEDS: AMLODIPINE 10 MG TAB PO SCH (09:29)
[2020-12-06] MEDS: ALLOPURINOL 300 MG TABLET PO SCH (09:31)
[2020-12-06] MEDS: POTASSIUM CHLORIDE 10 MEQ TABLET.ER PO SCH (11:14)
[2020-12-06 13:43] VITALS: BP 115/77
[2020-12-06 19:55] VITALS: BP 108/66
[2020-12-06] MEDS: ZOLPIDEM 5MG TABLET PO SCH (20:00)
[2020-12-06] MEDS: HYDROCORTISONE CRM 0.5%, 30GM TP SCH ×2 (20:00→21:00)
[2020-12-07 01:09] VITALS: BP 127/83
[2020-12-07] MEDS: ENOXAPARIN 40 MG/0.4 ML SQ SCH (02:52)
[2020-12-07] MEDS: GABAPENTIN 300 MG CAPSULE PO SCH ×4 (05:05→20:36)
[2020-12-07 05:51] LABS: BASOPHILS % (AUTO) 1 % (0-1); EOSINOPHILS % (AUTO) 5 % (1-7); LYMPHOCYTES % (AUTO) 22 % (22-44); MEAN CORPUSCULAR HEMOGLOBIN 30.5 pg (27.0-34.8); MEAN CORPUSCULAR HGB CONC 33.2 g/dL (32.4-35.8); MEAN PLATELET VOLUME 8.2 fL (7.4-10.4); MONOCYTES % (AUTO) 9 % (2-9); NEUTROPHILS % (AUTO) 63 % (42-75); PLATELET COUNT 219 x10^3/uL (130-400); RED BLOOD COUNT 5.08 x10^6/uL (3.82-5.3); RED CELL DISTRIBUTION WIDTH 15.5 % (9.6-15.2)
[2020-12-07 06:02] LABS: ALBUMIN 3.3 g/dL (3.4-5.0); ANION GAP 5 mmol/L (5-15); CHLORIDE 108 mmol/L (98-107)
[2020-12-07 06:05] LABS: ALANINE AMINOTRANSFERASE 95 U/L (12-78); ALKALINE PHOSPHATASE 113 U/L (45-117); BILIRUBIN,TOTAL 0.7 mg/dL (0.2-1.0); CREATININE 1.04 mg/dL (0.55-1.02); TOTAL PROTEIN 7.9 g/dL (6.4-8.2)
[2020-12-07 07:44] VITALS: BP 128/86
[2020-12-07] MEDS: ASPIRIN 81 MG TABLET EC PO SCH (08:21)
[2020-12-07] MEDS: POTASSIUM CHLORIDE 10 MEQ TABLET.ER PO SCH (08:21)
[2020-12-07] MEDS: POTASSIUM CHLORIDE 20 MEQ TAB.ER.PRT PO SCH (08:21)
[2020-12-07] MEDS: FUROSEMIDE 40 MG/4 ML IV SCH ×2 (08:21→17:16)
[2020-12-07] MEDS: ALLOPURINOL 300 MG TABLET PO SCH (08:22)
[2020-12-07] MEDS: AMLODIPINE 10 MG TAB PO SCH (08:22)
[2020-12-07] MEDS: HYDROCORTISONE CRM 0.5%, 30GM TP SCH ×3 (08:24→20:38)
[2020-12-07] MEDS: DOCUSATE 100 MG CAPSULE PO PRN ×2 (08:29→20:36)
[2020-12-07] MEDS: INSULIN LISPRO 100 UNITS/ML, PEN SQ-INSULIN SCH ×4 (08:29→20:37)
[2020-12-07] MEDS: HYDROcodone/APAP 5/325 TABLET PO PRN ×2 (08:29→20:36)
[2020-12-07 14:43] VITALS: BP 119/80
[2020-12-07] MEDS: METOLAZONE 5 MG TABLET PO SCH (17:16)
[2020-12-07 18:47] VITALS: BP 139/92
[2020-12-07] MEDS: ZOLPIDEM 5MG TABLET PO SCH (20:36)
[2020-12-08 01:15] VITALS: BP 122/89
[2020-12-08] MEDS: ENOXAPARIN 40 MG/0.4 ML SQ SCH ×2 (02:26→17:51)
[2020-12-08] MEDS: GABAPENTIN 300 MG CAPSULE PO SCH ×4 (05:11→20:25)
[2020-12-08 05:42] LABS: BASOPHILS % (AUTO) 1 % (0-1); EOSINOPHILS % (AUTO) 5 % (1-7); LYMPHOCYTES % (AUTO) 22 % (22-44); MEAN CORPUSCULAR HEMOGLOBIN 30.9 pg (27.0-34.8); MEAN PLATELET VOLUME 8.3 fL (7.4-10.4); MONOCYTES % (AUTO) 10 % (2-9); NEUTROPHILS % (AUTO) 63 % (42-75); PLATELET COUNT 231 x10^3/uL (130-400); RED BLOOD COUNT 5.22 x10^6/uL (3.82-5.3); RED CELL DISTRIBUTION WIDTH 15.5 % (9.6-15.2)
[2020-12-08 05:48] LABS: CHLORIDE 103 mmol/L (98-107)
[2020-12-08 05:52] LABS: ANION GAP 7 mmol/L (5-15); CALCIUM 9.5 mg/dL (8.5-10.1); CREATININE 0.91 mg/dL (0.55-1.02)
[2020-12-08] MEDS: FUROSEMIDE 40 MG/4 ML IV SCH ×2 (08:23→16:11)
[2020-12-08] MEDS: INSULIN LISPRO 100 UNITS/ML, PEN SQ-INSULIN SCH ×4 (08:23→20:27)
[2020-12-08] MEDS: ASPIRIN 81 MG TABLET EC PO SCH (08:24)
[2020-12-08] MEDS: ALLOPURINOL 300 MG TABLET PO SCH (08:24)
[2020-12-08] MEDS: POTASSIUM CHLORIDE 20 MEQ TAB.ER.PRT PO SCH (08:24)
[2020-12-08] MEDS: METOLAZONE 5 MG TABLET PO SCH ×2 (08:24→16:11)
[2020-12-08] MEDS: AMLODIPINE 10 MG TAB PO SCH (08:24)
[2020-12-08] MEDS: HYDROCORTISONE CRM 0.5%, 30GM TP SCH ×3 (08:25→20:28)
[2020-12-08 08:27] VITALS: BP 129/86
[2020-12-08] MEDS: HYDROcodone/APAP 5/325 TABLET PO PRN ×2 (08:31→20:25)
[2020-12-08] MEDS ORDERED: BISACODYL 10 MG SUPP PR PRN (09:00)
[2020-12-08] MEDS ORDERED: POLYETHYLENE GLYCOL 17 GM PACKET PO PRN (09:00)
[2020-12-08] MEDS: SENNA/DOCUSATE TABLET PO SCH (11:47)
[2020-12-08 14:48] VITALS: BP 104/82
[2020-12-08 18:42] VITALS: BP 122/83
[2020-12-08] MEDS: DOCUSATE 100 MG CAPSULE PO PRN (20:25)
[2020-12-08] MEDS: ZOLPIDEM 5MG TABLET PO SCH (20:25)
[2020-12-09 00:18] VITALS: BP 119/84
[2020-12-09] MEDS: ENOXAPARIN 40 MG/0.4 ML SQ SCH (05:10)
[2020-12-09] MEDS: GABAPENTIN 300 MG CAPSULE PO SCH ×2 (05:10→11:51)
[2020-12-09 05:58] LABS: BASOPHILS % (AUTO) 1 % (0-1); EOSINOPHILS % (AUTO) 5 % (1-7); LYMPHOCYTES % (AUTO) 21 % (22-44); MEAN CORPUSCULAR HEMOGLOBIN 30.7 pg (27.0-34.8); MEAN CORPUSCULAR HGB CONC 32.9 g/dL (32.4-35.8); MEAN PLATELET VOLUME 8.7 fL (7.4-10.4); MONOCYTES % (AUTO) 10 % (2-9); NEUTROPHILS % (AUTO) 63 % (42-75); PLATELET COUNT 225 x10^3/uL (130-400)
[2020-12-09 06:09] LABS: ANION GAP 5 mmol/L (5-15); CALCIUM 9.4 mg/dL (8.5-10.1); CHLORIDE 102 mmol/L (98-107); CREATININE 0.97 mg/dL (0.55-1.02)
[2020-12-09 07:43] VITALS: BP 119/79
[2020-12-09] MEDS ORDERED: FURO40TA6 PO (08:42)
[2020-12-09] MEDS ORDERED: POTA20TA6 PO (08:42)
[2020-12-09] MEDS ORDERED: METO5TAB5 PO (08:42)
[2020-12-09] MEDS: INSULIN LISPRO 100 UNITS/ML, PEN SQ-INSULIN SCH ×2 (09:12→11:55)
[2020-12-09] MEDS: METOLAZONE 5 MG TABLET PO SCH (09:14)
[2020-12-09] MEDS: FUROSEMIDE 40 MG/4 ML IV SCH (09:14)
[2020-12-09] MEDS: ALLOPURINOL 300 MG TABLET PO SCH (09:15)
[2020-12-09] MEDS: ASPIRIN 81 MG TABLET EC PO SCH (09:15)
[2020-12-09] MEDS: POTASSIUM CHLORIDE 20 MEQ TAB.ER.PRT PO SCH (09:15)
[2020-12-09] MEDS: SENNA/DOCUSATE TABLET PO SCH (09:15)
[2020-12-09] MEDS: AMLODIPINE 10 MG TAB PO SCH (09:16)
[2020-12-09] MEDS: HYDROCORTISONE CRM 0.5%, 30GM TP SCH (09:16)
[2020-12-09] MEDS: HYDROcodone/APAP 5/325 TABLET PO PRN (09:27)
[2020-12-09 12:56] VITALS: BP 119/84
== END 2020-12-09 15:25 | disposition home or self-care (01) | DRG 133 ==
LOC: ED 21:39 → EDIP 12-05 00:31 → 4EST 12-05 01:51 → DCLOUNGE 12-09 15:19
PROVIDERS: ADMIT Internal Medicine; ATTEND Family Medicine
DX: J96.01 Acute respiratory failure with hypoxia (principal); I50.33 Acute on chronic diastolic (congestive) heart failure; N17.9 Acute kidney failure, unspecified; I27.20 Pulmonary hypertension, unspecified; E66.01 Morbid (severe) obesity due to excess calories; Z68.41 Body mass index [BMI] 40.0-44.9, adult; E11.65 Type 2 diabetes mellitus with hyperglycemia; I11.0 Hypertensive heart disease with heart failure; E87.6 Hypokalemia; I25.10 Atherosclerotic heart disease of native coronary artery without angina pectoris; I25.2 Old myocardial infarction; M10.9 Gout, unspecified; Z82.49 Family history of ischemic heart disease and other diseases of the circulatory system; Z83.3 Family history of diabetes mellitus; Z86.73 Personal history of transient ischemic attack (TIA), and cerebral infarction without residual deficits; Z87.891 Personal history of nicotine dependence; Z95.1 Presence of aortocoronary bypass graft; Z95.3 Presence of xenogenic heart valve
CPT/HCPCS: 36415; 71045; 80048; 80053; 81003; 82962; 83036; 83880; 84443; 84484; 85025; 93005; 93306; G0378; J1650; J1940; J1815; Q0163

== ENCOUNTER 2021-01-19 17:45 | Inpatient (IN) | payer MEDICAID ==
[~2021-01-19] VITALS: Ht 165.1 cm; Wt 103.9 kg
[~2021-01-19 17:45] MED LIST changes: +METO5TAB5 PO; +POTA20TA6 PO
--- NOTE | 2021-01-19 18:10 | NUR ---
Extensive medical hx, previous CVA with left sided weakness. Reports 4-5 days ago feeling right sided weakness, difficulty walking, slurry speach. Upon assessment notice slow to respond, appears tired, no facial asymmetry, slightly weaker or left side, reports right hand being twitchy. On monitir NSR no ectopy. Call hightower in reach, family at bedside. No cp, no sob. Waiting for further orders. No covid vaccine.
--- NOTE | 2021-01-19 18:31 | NUR ---
IV BEING PLACED BY MEDIC AREA SUPERVISOR.
--- NOTE | 2021-01-19 18:35 | NUR ---
Unable to place peripheral IV, will place ultrasound.
--- NOTE | 2021-01-19 18:51 | NUR ---
REPORT RECIEVED FROM ADRYAN RAMÍREZ. LAB AT BEDSIDE. TECH ATTEMPTING IV AT THIS TIME.
[2021-01-19 19:04] LABS: BASOPHILS % (AUTO) 0 % (0-1); EOSINOPHILS % (AUTO) 0 % (1-7); LYMPHOCYTES % (AUTO) 12 % (22-44); MEAN CORPUSCULAR HEMOGLOBIN 28.7 pg (27.0-34.8); MEAN CORPUSCULAR HGB CONC 31.4 g/dL (32.4-35.8); MEAN PLATELET VOLUME 10.5 fL (7.4-10.4); MONOCYTES % (AUTO) 6 % (2-9); NEUTROPHILS % (AUTO) 82 % (42-75); PLATELET COUNT 180 x10^3/uL (130-400); RED BLOOD COUNT 7.13 x10^6/uL (3.82-5.3); RED CELL DISTRIBUTION WIDTH 14.8 % (9.6-15.2)
[2021-01-19 19:16] LABS: ALANINE AMINOTRANSFERASE 44 U/L (12-78); ALBUMIN 4.2 g/dL (3.4-5.0); ANION GAP 13 mmol/L (5-15); CALCIUM 11.2 mg/dL (8.5-10.1); CHLORIDE 74 mmol/L (98-107); CREATININE 2.36 mg/dL (0.55-1.02)
[2021-01-19 19:19] LABS: ALKALINE PHOSPHATASE 208 U/L (45-117); BILIRUBIN,TOTAL 0.8 mg/dL (0.2-1.0)
[2021-01-19] MEDS ORDERED: SODIUM CHLORIDE 0.9% 1,000ML IVBOLUS ONE ×2 (19:30→21:00)
[2021-01-19] MEDS ORDERED: INSULIN REGULAR 100 UNITS/ML, 3ML VIAL IVPush ONE (19:30)
[2021-01-19] MEDS ORDERED: INSULIN SINGLE DOSE, ER ONE ×3 (19:31→19:44)
[2021-01-19 20:03] LABS: MICROSCOPIC INDICATED
[2021-01-19 20:12] LABS: AMPHETAMINE SCREEN, URINE Negative (Negative); BARBITURATE SCREEN, URINE Negative (Negative); BENZODIAZEPINE SCREEN, URINE Negative (Negative); CANNABINOID SCREEN, URINE Negative (Negative); COCAINE SCREEN, URINE Negative (Negative); METHADONE SCREEN, URINE Negative (Negative); OPIATE SCREEN, URINE Negative (Negative)
[2021-01-19 20:49] LABS: ACETONE, SERUM Small (20mg/dL) (Negative)
--- NOTE | 2021-01-19 22:26 | NUR ---
fsbs is greater than 600. erp updated[address] dr[address] ceron sent message to hospitalist on starting insulin drip, more iv insulin, or to see first.
--- NOTE | 2021-01-19 23:25 | NUR ---
lab at bedside. results to determine if pt to go to floor or ccu
[2021-01-19 23:44] LABS: ALBUMIN 3.5 g/dL (3.4-5.0); ANION GAP 9 mmol/L (5-15); CALCIUM 10.1 mg/dL (8.5-10.1); CHLORIDE 85 mmol/L (98-107); CREATININE 2.05 mg/dL (0.55-1.02)
[2021-01-20] MEDS ORDERED: LABETALOL 5MG/ML, 20ML IVPush PRN (01:00)
[2021-01-20] MEDS ORDERED: ACETAMINOPHEN 325 MG TABLET PO PRN (01:00)
[2021-01-20] MEDS ORDERED: METOCLOPRAMIDE 5 MG/ML, 2ML IVPush PRN (01:00)
[2021-01-20] MEDS ORDERED: POTASSIUM CHLORIDE 40 MEQ in LACTATED RINGERS 1,000 ML IV SCH (01:00)
[2021-01-20] MEDS ORDERED: INSULIN REGULAR 100 UNITS/ML, 3ML VIAL IVPush ONE ×2 (01:30→08:30)
--- NOTE | 2021-01-20 01:32 | NUR ---
REPORT CALLED TO TORIN CORNELIUS AND SHE V/U. PT AWAKENS AND UNDERSTANDS SHE IS GOING TO BE TRANSFERRED TO THE FLOOR. PTS PIV DRESSING LOOSE ON RIGHT AC, AND REINFORCED WITH TAPE.
[2021-01-20 01:45] VITALS: BP 122/84
[2021-01-20] MEDS ORDERED: PHARMACY MAY ADJ FOR RENAL FX MC PRN (02:00)
[2021-01-20 02:42] LABS: ANION GAP 11 mmol/L (5-15); BASOPHILS % (AUTO) 0 % (0-1); CALCIUM 9.9 mg/dL (8.5-10.1); CHLORIDE 86 mmol/L (98-107); CREATININE 1.84 mg/dL (0.55-1.02); EOSINOPHILS % (AUTO) 1 % (1-7); LYMPHOCYTES % (AUTO) 21 % (22-44); MEAN CORPUSCULAR HEMOGLOBIN 29.3 pg (27.0-34.8); MEAN CORPUSCULAR HGB CONC 33.2 g/dL (32.4-35.8); MEAN PLATELET VOLUME 10.4 fL (7.4-10.4); MONOCYTES % (AUTO) 7 % (2-9); NEUTROPHILS % (AUTO) 71 % (42-75); PLATELET COUNT 169 x10^3/uL (130-400); RED BLOOD COUNT 6.62 x10^6/uL (3.82-5.3); RED CELL DISTRIBUTION WIDTH 14.4 % (9.6-15.2)
[2021-01-20] MEDS: INSULIN LISPRO 100 UNITS/ML, PEN SQ-INSULIN SCH ×6 (03:18→22:21)
[2021-01-20] MEDS ORDERED: POTASSIUM CHLORIDE 20 MEQ TAB.ER.PRT PO ONE (04:30)
[2021-01-20] MEDS: HEPARIN 5,000 UNITS/ML, 1ML SQ SCH ×4 (04:41→22:20)
[2021-01-20] MEDS: GABAPENTIN 300 MG CAPSULE PO SCH ×4 (06:12→22:19)
[2021-01-20 06:29] VITALS: BP 117/91
[2021-01-20] MEDS ORDERED: METOLAZONE 2.5 MG TABLET ONE (08:25)
[2021-01-20] MEDS: METOLAZONE 5 MG TABLET PO SCH ×2 (08:40→22:19)
[2021-01-20] MEDS: ASPIRIN 81 MG TABLET EC PO SCH (08:40)
[2021-01-20] MEDS: FUROSEMIDE 40 MG TABLET PO SCH ×2 (08:41→22:18)
[2021-01-20] MEDS: POTASSIUM CHLORIDE 20 MEQ TAB.ER.PRT PO SCH ×2 (08:41→22:18)
[2021-01-20] MEDS: AMLODIPINE 10 MG TAB PO SCH (08:41)
[2021-01-20] MEDS ORDERED: POTASSIUM CHLORIDE 20 MEQ TAB.ER.PRT PO SCH (09:00)
[2021-01-20 09:24] LABS: ANION GAP 15 mmol/L (5-15); CALCIUM 10.2 mg/dL (8.5-10.1); CHLORIDE 91 mmol/L (98-107); CREATININE 1.75 mg/dL (0.55-1.02)
[2021-01-20] MEDS: INSULIN GLARGINE 100 UNITS/ML, PEN SQ-INSULIN SCH ×2 (10:24→22:20)
[2021-01-20 12:29] VITALS: BP 116/82
[2021-01-20 13:14] LABS: ANION GAP 9 mmol/L (5-15); CALCIUM 9.8 mg/dL (8.5-10.1); CHLORIDE 95 mmol/L (98-107); CREATININE 1.63 mg/dL (0.55-1.02)
[2021-01-20 16:56] LABS: ANION GAP 7 mmol/L (5-15); CALCIUM 10.3 mg/dL (8.5-10.1); CHLORIDE 95 mmol/L (98-107); CREATININE 1.78 mg/dL (0.55-1.02)
[2021-01-20 20:30] LABS: ANION GAP 8 mmol/L (5-15); CALCIUM 9.7 mg/dL (8.5-10.1); CHLORIDE 92 mmol/L (98-107); CREATININE 1.94 mg/dL (0.55-1.02)
[2021-01-20] MEDS ORDERED: INSULIN GLARGINE 100 UNITS/ML, PEN SQ-INSULIN SCH (21:00)
[2021-01-20 21:57] VITALS: BP 107/76
[2021-01-20] MEDS: ZOLPIDEM 5MG TABLET PO SCH (22:19)
[2021-01-21 01:18] LABS: ANION GAP 8 mmol/L (5-15); CALCIUM 9.3 mg/dL (8.5-10.1); CHLORIDE 91 mmol/L (98-107); CREATININE 1.86 mg/dL (0.55-1.02)
[2021-01-21 03:06] VITALS: BP 103/77
[2021-01-21] MEDS: GABAPENTIN 300 MG CAPSULE PO SCH ×4 (06:14→20:48)
[2021-01-21] MEDS: HEPARIN 5,000 UNITS/ML, 1ML SQ SCH ×3 (06:14→23:40)
[2021-01-21 06:23] LABS: CHLORIDE 94 mmol/L (98-107)
[2021-01-21 06:29] LABS: ANION GAP 9 mmol/L (5-15); CALCIUM 9.5 mg/dL (8.5-10.1); CREATININE 1.54 mg/dL (0.55-1.02)
[2021-01-21 07:12] VITALS: BP 114/78
[2021-01-21] MEDS: POTASSIUM CHLORIDE 20 MEQ TAB.ER.PRT PO SCH ×2 (08:04→20:48)
[2021-01-21] MEDS: METOLAZONE 5 MG TABLET PO SCH ×2 (08:04→20:48)
[2021-01-21] MEDS: ASPIRIN 81 MG TABLET EC PO SCH (08:05)
[2021-01-21] MEDS: AMLODIPINE 10 MG TAB PO SCH (08:05)
[2021-01-21] MEDS: FUROSEMIDE 40 MG TABLET PO SCH ×2 (08:13→20:49)
[2021-01-21] MEDS: INSULIN GLARGINE 100 UNITS/ML, PEN SQ-INSULIN SCH ×2 (08:24→20:47)
[2021-01-21] MEDS: INSULIN LISPRO 100 UNITS/ML, PEN SQ-INSULIN SCH ×4 (08:24→20:48)
[2021-01-21 14:23] VITALS: BP 109/75
[2021-01-21] MEDS: ZOLPIDEM 5MG TABLET PO SCH (20:49)
[2021-01-21 20:50] VITALS: BP 124/82
[2021-01-22 01:37] VITALS: BP 106/73
[2021-01-22] MEDS: GABAPENTIN 300 MG CAPSULE PO SCH ×4 (05:24→20:49)
[2021-01-22] MEDS: INSULIN LISPRO 100 UNITS/ML, PEN SQ-INSULIN SCH ×4 (07:40→20:51)
[2021-01-22] MEDS: ASPIRIN 81 MG TABLET EC PO SCH (07:41)
[2021-01-22] MEDS: POTASSIUM CHLORIDE 20 MEQ TAB.ER.PRT PO SCH ×2 (07:41→20:49)
[2021-01-22] MEDS: METOLAZONE 5 MG TABLET PO SCH ×2 (07:41→20:49)
[2021-01-22] MEDS: FUROSEMIDE 40 MG TABLET PO SCH ×2 (07:41→20:49)
[2021-01-22] MEDS: AMLODIPINE 10 MG TAB PO SCH (07:41)
[2021-01-22] MEDS: INSULIN GLARGINE 100 UNITS/ML, PEN SQ-INSULIN SCH ×2 (07:41→20:51)
[2021-01-22] MEDS: HEPARIN 5,000 UNITS/ML, 1ML SQ SCH ×3 (07:42→22:21)
[2021-01-22 07:43] VITALS: BP 117/81
[2021-01-22 08:09] LABS: BASOPHILS % (AUTO) 0 % (0-1); EOSINOPHILS % (AUTO) 3 % (1-7); LYMPHOCYTES % (AUTO) 27 % (22-44); MEAN CORPUSCULAR HEMOGLOBIN 28.7 pg (27.0-34.8); MEAN CORPUSCULAR HGB CONC 32.4 g/dL (32.4-35.8); MEAN PLATELET VOLUME 10.6 fL (7.4-10.4); MONOCYTES % (AUTO) 7 % (2-9); NEUTROPHILS % (AUTO) 63 % (42-75); PLATELET COUNT 131 x10^3/uL (130-400); RED CELL DISTRIBUTION WIDTH 14.2 % (9.6-15.2)
[2021-01-22 08:12] LABS: ALBUMIN 3.1 g/dL (3.4-5.0); ANION GAP 9 mmol/L (5-15); CALCIUM 9.7 mg/dL (8.5-10.1); CHLORIDE 91 mmol/L (98-107)
[2021-01-22 08:15] LABS: ALANINE AMINOTRANSFERASE 30 U/L (12-78); ALKALINE PHOSPHATASE 99 U/L (45-117); BILIRUBIN,TOTAL 1.1 mg/dL (0.2-1.0); CREATININE 1.23 mg/dL (0.55-1.02); TOTAL PROTEIN 8.5 g/dL (6.4-8.2)
[2021-01-22] MEDS: ALLOPURINOL 300 MG TABLET PO SCH (09:46)
[2021-01-22 12:59] VITALS: BP 125/85
[2021-01-22 20:13] VITALS: BP 138/85
[2021-01-22] MEDS: ZOLPIDEM 5MG TABLET PO SCH (20:49)
[2021-01-23 02:04] VITALS: BP 115/82
[2021-01-23 05:40] LABS: BASOPHILS % (AUTO) 0 % (0-1); EOSINOPHILS % (AUTO) 1 % (1-7); LYMPHOCYTES % (AUTO) 16 % (22-44); MEAN CORPUSCULAR HEMOGLOBIN 29.5 pg (27.0-34.8); MEAN PLATELET VOLUME 10.3 fL (7.4-10.4); MONOCYTES % (AUTO) 6 % (2-9); NEUTROPHILS % (AUTO) 77 % (42-75); PLATELET COUNT 143 x10^3/uL (130-400); RED CELL DISTRIBUTION WIDTH 14.4 % (9.6-15.2)
[2021-01-23] MEDS: GABAPENTIN 300 MG CAPSULE PO SCH ×5 (05:45→20:17)
[2021-01-23] MEDS: HEPARIN 5,000 UNITS/ML, 1ML SQ SCH ×3 (05:45→22:13)
[2021-01-23 05:47] LABS: ALBUMIN 3.1 g/dL (3.4-5.0); ANION GAP 9 mmol/L (5-15); CALCIUM 9.7 mg/dL (8.5-10.1); CHLORIDE 90 mmol/L (98-107)
[2021-01-23 06:00] LABS: ALANINE AMINOTRANSFERASE 763 U/L (12-78); ALKALINE PHOSPHATASE 176 U/L (45-117); BILIRUBIN,TOTAL 4.5 mg/dL (0.2-1.0); CREATININE 1.34 mg/dL (0.55-1.02); TOTAL PROTEIN 8.5 g/dL (6.4-8.2)
[2021-01-23] MEDS: INSULIN LISPRO 100 UNITS/ML, PEN SQ-INSULIN SCH ×4 (07:40→20:29)
[2021-01-23] MEDS: INSULIN GLARGINE 100 UNITS/ML, PEN SQ-INSULIN SCH ×2 (07:41→20:27)
[2021-01-23] MEDS: METOLAZONE 5 MG TABLET PO SCH ×2 (07:42→20:21)
[2021-01-23] MEDS: ASPIRIN 81 MG TABLET EC PO SCH (07:42)
[2021-01-23] MEDS: AMLODIPINE 10 MG TAB PO SCH (07:43)
[2021-01-23] MEDS: ALLOPURINOL 300 MG TABLET PO SCH (07:43)
[2021-01-23] MEDS: FUROSEMIDE 40 MG TABLET PO SCH (07:43)
[2021-01-23] MEDS: POTASSIUM CHLORIDE 20 MEQ TAB.ER.PRT PO SCH ×2 (07:43→20:22)
[2021-01-23 08:00] VITALS: BP 117/78
[2021-01-23] MEDS ORDERED: FUROSEMIDE 40 MG/4 ML IV ONE (08:30)
[2021-01-23] MEDS ORDERED: DIPHENHYDRAMINE 50 MG/ML, 1ML IVPush ONE (08:30)
[2021-01-23 14:49] VITALS: BP 115/72
[2021-01-23] MEDS: FUROSEMIDE 40 MG/4 ML IV SCH (17:11)
[2021-01-23 20:23] VITALS: BP 111/77
[2021-01-23] MEDS: ZOLPIDEM 5MG TABLET PO SCH (22:10)
[2021-01-24 01:35] VITALS: BP 88/60
[2021-01-24 04:45] LABS: BASOPHILS % (AUTO) 0 % (0-1); EOSINOPHILS % (AUTO) 4 % (1-7); LYMPHOCYTES % (AUTO) 28 % (22-44); MEAN CORPUSCULAR HEMOGLOBIN 29.4 pg (27.0-34.8); MEAN CORPUSCULAR HGB CONC 32.8 g/dL (32.4-35.8); MEAN PLATELET VOLUME 9.9 fL (7.4-10.4); MONOCYTES % (AUTO) 9 % (2-9); NEUTROPHILS % (AUTO) 59 % (42-75); PLATELET COUNT 133 x10^3/uL (130-400); RED BLOOD COUNT 5.36 x10^6/uL (3.82-5.3); RED CELL DISTRIBUTION WIDTH 14.3 % (9.6-15.2)
[2021-01-24 04:56] LABS: ALBUMIN 2.9 g/dL (3.4-5.0); ANION GAP 6 mmol/L (5-15); CALCIUM 9.6 mg/dL (8.5-10.1); CHLORIDE 90 mmol/L (98-107)
[2021-01-24 04:59] LABS: ALANINE AMINOTRANSFERASE 669 U/L (12-78); ALKALINE PHOSPHATASE 209 U/L (45-117); BILIRUBIN,TOTAL 2.7 mg/dL (0.2-1.0); CREATININE 1.47 mg/dL (0.55-1.02); TOTAL PROTEIN 8.2 g/dL (6.4-8.2)
[2021-01-24] MEDS: FUROSEMIDE 40 MG/4 ML IV SCH ×2 (05:53→20:04)
[2021-01-24] MEDS: GABAPENTIN 300 MG CAPSULE PO SCH ×4 (05:53→20:04)
[2021-01-24] MEDS: HEPARIN 5,000 UNITS/ML, 1ML SQ SCH ×2 (06:30→16:29)
[2021-01-24 06:41] VITALS: BP 108/69
[2021-01-24] MEDS: INSULIN LISPRO 100 UNITS/ML, PEN SQ-INSULIN SCH ×4 (07:00→20:07)
[2021-01-24 09:38] VITALS: BP 108/73
[2021-01-24] MEDS: METOLAZONE 5 MG TABLET PO SCH ×2 (09:40→20:04)
[2021-01-24] MEDS: AMLODIPINE 10 MG TAB PO SCH (09:40)
[2021-01-24] MEDS: ASPIRIN 81 MG TABLET EC PO SCH (09:40)
[2021-01-24] MEDS: POTASSIUM CHLORIDE 20 MEQ TAB.ER.PRT PO SCH ×2 (09:40→20:04)
[2021-01-24] MEDS: INSULIN GLARGINE 100 UNITS/ML, PEN SQ-INSULIN SCH ×2 (09:41→20:07)
[2021-01-24 14:08] VITALS: BP 112/70
[2021-01-24 16:30] VITALS: BP 96/65
[2021-01-24 19:51] VITALS: BP 127/88
[2021-01-24] MEDS: ZOLPIDEM 5MG TABLET PO SCH (21:29)
[2021-01-25] MEDS: HEPARIN 5,000 UNITS/ML, 1ML SQ SCH ×3 (00:34→16:53)
[2021-01-25 00:36] VITALS: BP 115/82
[2021-01-25 05:26] LABS: BASOPHILS % (AUTO) 1 % (0-1); EOSINOPHILS % (AUTO) 3 % (1-7); LYMPHOCYTES % (AUTO) 26 % (22-44); MEAN CORPUSCULAR HEMOGLOBIN 29.9 pg (27.0-34.8); MEAN CORPUSCULAR HGB CONC 33.3 g/dL (32.4-35.8); MEAN PLATELET VOLUME 10.3 fL (7.4-10.4); MONOCYTES % (AUTO) 11 % (2-9); NEUTROPHILS % (AUTO) 59 % (42-75); PLATELET COUNT 146 x10^3/uL (130-400); RED BLOOD COUNT 5.33 x10^6/uL (3.82-5.3); RED CELL DISTRIBUTION WIDTH 14.4 % (9.6-15.2)
[2021-01-25 05:38] LABS: ANION GAP 6 mmol/L (5-15); CHLORIDE 88 mmol/L (98-107)
[2021-01-25 05:41] LABS: ALANINE AMINOTRANSFERASE 411 U/L (12-78); ALKALINE PHOSPHATASE 194 U/L (45-117); BILIRUBIN,TOTAL 2.7 mg/dL (0.2-1.0); CREATININE 1.83 mg/dL (0.55-1.02); TOTAL PROTEIN 8.4 g/dL (6.4-8.2)
[2021-01-25] MEDS: GABAPENTIN 300 MG CAPSULE PO SCH ×4 (06:18→20:50)
[2021-01-25 08:12] VITALS: BP 118/81
[2021-01-25] MEDS: INSULIN LISPRO 100 UNITS/ML, PEN SQ-INSULIN SCH ×4 (08:28→20:50)
[2021-01-25] MEDS: INSULIN GLARGINE 100 UNITS/ML, PEN SQ-INSULIN SCH ×2 (08:29→20:49)
[2021-01-25] MEDS: ASPIRIN 81 MG TABLET EC PO SCH (08:29)
[2021-01-25] MEDS: METOLAZONE 5 MG TABLET PO SCH ×2 (08:29→20:50)
[2021-01-25] MEDS: AMLODIPINE 10 MG TAB PO SCH (08:30)
[2021-01-25] MEDS: FUROSEMIDE 40 MG TABLET PO SCH ×2 (08:30→17:00)
[2021-01-25] MEDS: POTASSIUM CHLORIDE 20 MEQ TAB.ER.PRT PO SCH ×2 (08:30→20:50)
[2021-01-25 13:23] VITALS: BP 108/75
[2021-01-25] MEDS ORDERED: POLYETHYLENE GLYCOL 17 GM PACKET NG PRN (18:00)
[2021-01-25 19:28] VITALS: BP 114/83
[2021-01-25] MEDS: ZOLPIDEM 5MG TABLET PO SCH (20:50)
[2021-01-26 04:42] VITALS: BP 108/68
[2021-01-26] MEDS: HEPARIN 5,000 UNITS/ML, 1ML SQ SCH (04:45)
[2021-01-26] MEDS: GABAPENTIN 300 MG CAPSULE PO SCH ×2 (04:46→11:00)
[2021-01-26 05:55] LABS: ANION GAP 8 mmol/L (5-15); CALCIUM 9.9 mg/dL (8.5-10.1); CHLORIDE 93 mmol/L (98-107); CREATININE 1.17 mg/dL (0.55-1.02)
[2021-01-26] MEDS: INSULIN LISPRO 100 UNITS/ML, PEN SQ-INSULIN SCH ×2 (07:00→11:00)
[2021-01-26 07:38] VITALS: BP 103/72
[2021-01-26] MEDS: FUROSEMIDE 40 MG TABLET PO SCH (08:05)
[2021-01-26] MEDS: ASPIRIN 81 MG TABLET EC PO SCH (08:06)
[2021-01-26] MEDS: METOLAZONE 5 MG TABLET PO SCH (08:06)
[2021-01-26] MEDS: AMLODIPINE 10 MG TAB PO SCH (08:06)
[2021-01-26] MEDS: POTASSIUM CHLORIDE 20 MEQ TAB.ER.PRT PO SCH (08:06)
[2021-01-26] MEDS: INSULIN GLARGINE 100 UNITS/ML, PEN SQ-INSULIN SCH (08:07)
[2021-01-26] MEDS ORDERED: INSU100I11 SQ (08:28)
[2021-01-26] MEDS ORDERED: INSU100I13 SQ-INSULIN (08:28)
== END 2021-01-26 14:04 | disposition home or self-care (01) | DRG 420 ==
LOC: ED 19:26 → EDIP 20:44 → 5SO 01-20 01:40
PROVIDERS: ADMIT Internal Medicine; ATTEND Family Medicine
DX: E11.00 Type 2 diabetes mellitus with hyperosmolarity without nonketotic hyperglycemic-hyperosmolar coma (NKHHC) (principal); N17.0 Acute kidney failure with tubular necrosis; K72.00 Acute and subacute hepatic failure without coma; I50.33 Acute on chronic diastolic (congestive) heart failure; G93.41 Metabolic encephalopathy; D75.1 Secondary polycythemia; E11.65 Type 2 diabetes mellitus with hyperglycemia; E87.6 Hypokalemia; I25.10 Atherosclerotic heart disease of native coronary artery without angina pectoris; I11.0 Hypertensive heart disease with heart failure; Z20.822 Contact with and (suspected) exposure to COVID-19; R14.0 Abdominal distension (gaseous); I25.2 Old myocardial infarction; M10.9 Gout, unspecified; R29.6 Repeated falls; Z86.73 Personal history of transient ischemic attack (TIA), and cerebral infarction without residual deficits; Z87.891 Personal history of nicotine dependence; Z90.49 Acquired absence of other specified parts of digestive tract; Z95.1 Presence of aortocoronary bypass graft; Z95.2 Presence of prosthetic heart valve; Z82.49 Family history of ischemic heart disease and other diseases of the circulatory system; Z83.3 Family history of diabetes mellitus
CPT/HCPCS: 36415; 70450; 71045; 74018; 74183; 80048; 80053; 80307; 81001; 82010; 82040; 82803; 82947; 82962; 83036; 83735; 83880; 84550; 85025; 87040; 93005; 96361; 96374; 99285; G0378; J1644; J1815; J1940; J3480; U0005; 92523-GN; J1200; J2765; J7030; J7120; U0003